=== PATIENT | female | born 1935 | race American Indian/Alaskan Native ===

== ENCOUNTER 2021-11-29 21:20 | Inpatient (IN) | payer MEDICARE ==
--- NOTE | 2021-11-29 22:33 | Emergency Department Report ---
- General Chief complaint: Weakness Stated complaint: NO DIALYSIS SINCE LAST SUNDAY Time Seen by Provider: 11/29/21 21:53 Source: EMS Mode of arrival: Stretcher Limitations: No Limitations - History of Present Illness Initial comments: Patient is 85 years old female with end-stage renal disease on hemodialysis. Patient brought to the emergency room via EMS from home for evaluation of generalized weakness. EMS stated that patient did not have dialysis since last Sunday which is approximately 9 days now. No reason for not going for dialysis. Patient is alert, oriented and stated that she go to [facility] [place] and her procurement technician named Dr. Truong. Patient denied any chest pain or shortness of breath. No nausea or vomiting. Severity scale (0 -10): 0 ED Review of Systems ROS: Stated complaint: NO DIALYSIS SINCE LAST SUNDAY Other details as noted in HPI Comment: All other systems reviewed and negative Constitutional: denies: chills, fever Respiratory: denies: cough, shortness of breath, SOB with exertion, SOB at rest Cardiovascular: denies: chest pain, palpitations, dyspnea on exertion Gastrointestinal: denies: abdominal pain, nausea, vomiting Musculoskeletal: denies: back pain Neurological: weakness. denies: headache, numbness, paresthesias ED Physical Exam - General Limitations: No Limitations General appearance: alert, in no apparent distress - Head Head exam: Present: atraumatic, normocephalic, normal inspection - Eye Eye exam: Present: normal appearance - ENT ENT exam: Present: normal exam, normal orophraynx, mucous membranes moist - Neck Neck exam: Present: normal inspection, full ROM. Absent: tenderness, meningismus - Respiratory Respiratory exam: Present: normal lung sounds bilaterally - Cardiovascular Cardiovascular Exam: Present: regular rate, normal rhythm, normal heart sounds - GI/Abdominal GI/Abdominal exam: Present: soft, normal bowel sounds. Absent: distended, tenderness, guarding, rebound, rigid, organomegaly, mass, bruit, pulsatile mass, hernia - Back Exam Back exam: Present: normal inspection, full ROM. Absent: CVA tenderness (R), CVA tenderness (L) - Neurological Exam Neurological exam: Present: alert, oriented X3, CN II-XII intact - Psychiatric Psychiatric exam: Present: normal mood - Skin Skin exam: Present: warm, intact, normal color ED Course Vital Signs 01/11/22 21:32 Temperature 98.4 F Pulse Rate 66 Respiratory 19 Rate Blood Pressure 118/68 [Left] O2 Sat by Pulse 99 Oximetry ED Medical Decision Making - Lab Data Result diagrams: 11/29/21 23:24 11/29/21 23:24 - EKG Data -: EKG Interpreted by Me EKG shows normal: sinus rhythm Rate: normal - EKG Data Interpretation: no acute changes - Radiology Data Radiology results: report reviewed - Medical Decision Making Patient is 85 years old female with end-stage renal disease on hemodialysis. Patient brought to the emergency room via EMS from home for evaluation of generalized weakness. EMS stated that patient did not have dialysis since last Sunday which is approximately 9 days now. No reason for not going for dialysis. Patient is alert, oriented and stated that she go to [facility] [place] and her procurement technician named Dr. Limon's. Patient denied any chest pain or shortness of breath. No nausea or vomiting. Patient found to have hyperkalemia with a potassium of 6.3. Patient received albuterol, dextrose, insulin and calcium chloride. I discussed the patient with Dr. Delfino Jaramillo, procurement technician on-call and he stated that he will put dialysis orders. I discussed the patient with Dr. Lee, he agreed to admit the patient to medical service for further management. Critical Care Time: Yes Critical care time in (mins) excluding proc time.: 35 Critical care attestation.: If time is entered above; I have spent that time in minutes in the direct care of this critically ill patient, excluding procedure time. ED Disposition Clinical Impression: Acute hyperkalemia, End-stage renal disease needing dialysis Disposition: 09 ADMITTED INPATIENT Is pt being admited?: Yes Condition: Stable
--- NOTE | 2021-11-29 22:53 | XRay Report ---
CHEST 1 VIEW INDICATION: Weakness. COMPARISON: 03/20/2010 FINDINGS: SUPPORT DEVICES: Right-sided cardiac device with leads projecting over the right atrium and the right ventricle. HEART: Within normal limits. LUNGS/PLEURA: Large hiatal hernia. Mild left basilar compressive atelectasis. Lungs are otherwise lenny ar. ADDITIONAL FINDINGS: None. IMPRESSION: 1. Large hiatal hernia and lung findings as above Signer Name: Humble Peterson MD Signed: 11/29/2021 10:49 PM Workstation Name: [id number]
[2021-11-29 23:48] LABS: Basophils % (Auto) 0.6 % (0.0-1.8); Eosinophils # (Auto) 0.1 K/mm3 (0.0-0.4); Eosinophils % (Auto) 1.3 % (0.0-4.3); Hematocrit 42.1 % (30.3-42.9); Hemoglobin 13.1 gm/dl (10.1-14.3); Lymphocytes # (Auto) 1.1 K/mm3 (1.2-5.4); Lymphocytes % (Auto) 14.5 % (13.4-35.0); Mean Corpuscular HGB Conc 31 % (30-34); Mean Corpuscular Volume 93 fl (79-97); Monocytes # (Auto) 0.8 K/mm3 (0.0-0.8); Monocytes % (Auto) 11.2 % (0.0-7.3); Platelet Count 132 K/mm3 (140-440); Red Blood Count 4.52 M/mm3 (3.65-5.03); Red Cell Distribution Width 15.3 % (13.2-15.2)
[2021-11-30 00:01] LABS: Calcium 8.6 mg/dL (8.4-10.2)
[2021-11-30] MEDS ORDERED: SODIUM CHLORIDE 0.9% 100 ML IV PRN ×2 (00:15→12:00)
--- NOTE | 2021-11-30 00:16 | Progress Note ---
Subjective Date of service: 11/30/21 Interval history: Patient agreeable and consents to dialysis. STAT HD ordered for hyperkalemia Objective - Vital Signs Vital signs: Vital Signs - 12hr 11/29/21 21:32 Temperature 98.4 F Pulse Rate 66 Respiratory 19 Rate Blood Pressure 118/68 [Left] O2 Sat by Pulse 99 Oximetry - Lab 11/29/21 23:24 11/29/21 23:24 Most recent lab results Calcium 8.6 mg/dL (8.4-10.2) 11/29/21 23:24 Medications & Allergies - Medications Allergies/Adverse Reactions: Allergies No Known Allergies Allergy (Verified 11/30/21 03:14) Active Medications: Generic Name Dose Route Start Last Admin Trade Name Freq PRN Reason Stop Dose Admin Albuterol 5 mg 11/30/21 00:10 Albuterol 2.5 Mg/3 Ml Nebu IH 11/30/21 00:11 ONCE ONE Dextrose 50 ml 11/30/21 00:10 Dextrose 50% In Water (25gm) 50 Ml Syringe IV 11/30/21 00:11 ONCE ONE Protocol Calcium Chloride 1,000 mg/ 110 mls @ 660 mls/hr 11/30/21 00:10 Sodium Chloride IV 11/30/21 00:19 ONCE ONE Insulin Human Regular 5 units 11/30/21 00:10 Insulin Regular, Human 100 Units/1 Ml IV 11/30/21 00:11 ONCE ONE Sodium Polystyrene Sulfonate 60 gm 11/30/21 00:14 Sodium Polystyrene 15 Gm/60 Ml Oral Liqd PO 11/30/21 00:15 ONCE ONE
[2021-11-30] MEDS ORDERED: ONDANSETRON 4 MG/2 ML INJ IV PRN (01:25)
[2021-11-30] MEDS ORDERED: HYDROmorphone 1 MG/1 ML INJ IV PRN (01:25)
[2021-11-30] MEDS ORDERED: ACETAMINOPHEN 325 MG TAB PO PRN (01:25)
[2021-11-30] MEDS ORDERED: MORPHINE 2 MG/1 ML INJ IV PRN (01:25)
--- NOTE | 2021-11-30 01:32 | History and Physical Report ---
History of Present Illness Date of examination: 11/30/21 Date of admission: 11/30/21 Chief complaint: Missed hemodialysis Weakness History of present illness: 85 years old female with end-stage renal disease on hemodialysis was brought to the emergency room because of generalized weakness. patient did not have dialysis since last Sunday which is approximately 9 days now. No reason for not going for dialysis. Patient is alert, oriented and stated that she go to [facility] [place] and her director of database marketing named Dr. Tamayos. Patient denied any chest pain or shortness of breath. No nausea or vomiting. In the emergency room patient found to have hyperkalemia with a potassium of 6.3. BUN of 69 and creatinine 15.1. patient received albuterol, dextrose, insulin and calcium chloride. Subsequently case discussed the patient with Dr. Delfino Jaramillo, director of database marketing on-call and director of database marketing will hemodialyzed the patient emergently. Past History Past Medical History: ESRD, renal failure Medications and Allergies Active Meds: Active Medications Albuterol (Albuterol 2.5 Mg/3 Ml Nebu) 5 mg IH ONCE ONE Stop: 11/30/21 00:11 Dextrose (Dextrose 50% In Water (25gm) 50 Ml Syringe) 50 ml IV ONCE ONE; Protocol Stop: 11/30/21 00:11 Calcium Chloride 1,000 mg/ (Sodium Chloride) 110 mls @ 660 mls/hr IV ONCE ONE Stop: 11/30/21 00:19 Sodium Chloride (Nacl 0.9%) 100 mls @ 999 mls/hr IV RALPH PRN PRN Reason: Hypotension Insulin Human Regular (Insulin Regular, Human 100 Units/1 Ml) 5 units IV ONCE ONE Stop: 11/30/21 00:11 Sodium Polystyrene Sulfonate (Sodium Polystyrene 15 Gm/60 Ml Oral Liqd) 60 gm PO ONCE ONE Stop: 11/30/21 00:15 Review of Systems All systems: negative Constitutional: fatigue, weakness, malaise, lethargy Exam - Constitutional Vitals: Temp Pulse Resp BP Pulse Ox 98.4 F 66 19 118/68 99 11/29/21 21:32 11/29/21 21:32 11/29/21 21:32 11/29/21 21:32 11/29/21 21:32 General appearance: Present: no acute distress, well-nourished - EENT Eyes: Present: PERRL ENT: hearing intact, clear oral mucosa - Neck Neck: Present: supple, normal ROM - Respiratory Respiratory effort: normal Respiratory: bilateral: diminished - Cardiovascular Heart Sounds: Present: S1 & S2. Absent: rub, click - Extremities Extremities: pulses symmetrical, No edema Peripheral Pulses: within normal limits - Abdominal General gastrointestinal: Present: soft, non-tender, non-distended, normal bowel sounds Female genitourinary: Present: normal - Integumentary Integumentary: Present: clear, warm, dry - Musculoskeletal Musculoskeletal: gait normal, strength equal bilaterally - Psychiatric Psychiatric: appropriate mood/affect, intact judgment & insight - Neurologic Neurologic: CNII-XII intact, moves all extremities Results - Labs CBC & Chem 7: 11/29/21 23:24 11/29/21 23:24 Labs: Laboratory Last Values WBC 7.5 K/mm3 (4.5-11.0) 11/29/21 23:24 RBC 4.52 M/mm3 (3.65-5.03) 11/29/21 23:24 Hgb 13.1 gm/dl (10.1-14.3) 11/29/21 23:24 Hct 42.1 % (30.3-42.9) 11/29/21 23:24 MCV 93 fl (79-97) 11/29/21 23:24 MCH 29 pg (28-32) 11/29/21 23:24 MCHC 31 % (30-34) 11/29/21 23:24 RDW 15.3 % (13.2-15.2) H 11/29/21 23:24 Plt Count 132 K/mm3 (140-440) L 11/29/21 23:24 Lymph % (Auto) 14.5 % (13.4-35.0) 11/29/21 23:24 Turner % (Auto) 11.2 % (0.0-7.3) H 11/29/21 23:24 Eos % (Auto) 1.3 % (0.0-4.3) 11/29/21 23:24 Baso % (Auto) 0.6 % (0.0-1.8) 11/29/21 23:24 Lymph # (Auto) 1.1 K/mm3 (1.2-5.4) L 11/29/21 23:24 Turner # (Auto) 0.8 K/mm3 (0.0-0.8) 11/29/21 23:24 Eos # (Auto) 0.1 K/mm3 (0.0-0.4) 11/29/21 23:24 Baso # (Auto) 0.0 K/mm3 (0.0-0.1) 11/29/21 23:24 Seg Neutrophils % 72.4 % (40.0-70.0) H 11/29/21 23:24 Seg Neutrophils # 5.5 K/mm3 (1.8-7.7) 11/29/21 23:24 Sodium 140 mmol/L (137-145) 11/29/21 23:24 Potassium 6.3 mmol/L (3.6-5.0) H* 11/29/21 23:24 Chloride 97.9 mmol/L (98-107) L 11/29/21 23:24 Carbon Dioxide 19 mmol/L (22-30) L 11/29/21 23:24 Anion Gap 29 mmol/L 11/29/21 23:24 BUN 69 mg/dL (7-17) H 11/29/21 23:24 Creatinine 15.1 mg/dL (0.6-1.2) H 11/29/21 23:24 Estimated GFR 3 ml/min 11/29/21 23:24 BUN/Creatinine Ratio 5 % 11/29/21 23:24 Glucose 95 mg/dL (65-100) 11/29/21 23:24 Calcium 8.6 mg/dL (8.4-10.2) 11/29/21 23:24 Assessment and Plan VTE prophylaxis?: Chemical Plan of care discussed with patient/family: Yes - Patient Problems (1) End-stage renal disease needing dialysis Current Visit: No Status: Acute Plan to address problem: Admit the patient to the medical telemetry. Patient already get calcium chloride 1 g IV x1 dose, insulin 5 units regular insulin, Kayexalate 60 g p.o. once. And D50. Case discussed with on-call nephrology Dr. Hunter Jaramillo who will do the emergent dialysis. Recheck BMP in the morning (2) Acute hyperkalemia Current Visit: No Status: Acute Plan to address problem: Patient already get calcium chloride 1 g IV x1 dose, insulin 5 units regular insulin, Kayexalate 60 g p.o. once. And D50. Case discussed with on-call nephrology Dr. Hunter Jaramillo who will do the emergent dialysis. Recheck BMP in the morning (3) DVT prophylaxis Current Visit: Yes Status: Acute Plan to address problem: Heparin 5000 units subcu every 8 hours for DVT prophylaxis. Pepcid 20 mg IV every 12 hours per GI prophylaxis. Patient is a full code
[2021-11-30] MEDS ORDERED: ALBUTEROL 2.5 MG/3 ML NEBU IH ONE (04:10)
[2021-11-30] MEDS ORDERED: CALCIUM CHLORIDE 1,000 MG in SODIUM CHLORIDE 0.9% 100 ML IV ONE (04:10)
[2021-11-30] MEDS ORDERED: INSULIN REGULAR, HUMAN 100 UNITS/1 ML IV ONE (04:10)
[2021-11-30] MEDS ORDERED: DEXTROSE 50% IN WATER (25GM) 50 ML SYRINGE IV ONE (04:10)
[2021-11-30] MEDS ORDERED: SODIUM POLYSTYRENE 15 GM/60 ML ORAL LIQD PO ONE (04:14)
[2021-11-30 05:45] LABS: Hepatitis C Virus Antibody Non-Reactive (NonReactive)
[2021-11-30 05:53] LABS: Hepatitis B Surface Antigen Nonreactive (Negative)
[2021-11-30] MEDS: HEPARIN 5,000 UNIT/1 ML VIAL SUB-Q SCH (10:07)
[2021-11-30] MEDS: FAMOTIDINE 20 MG TAB PO SCH (10:08)
--- NOTE | 2021-11-30 10:41 | Consultation ---
History of Present Illness - Reason for Consult Consult date: 11/30/21 end stage renal disease - History of Present Illness 85 year old F admitted to the [facility] with missed HD since more than a week. Pt has been found to have severe hyperkalemia on labs. Patient denied any chest pain or shortness of breath. No nausea or vomiting. She gets HD at [facility]. ROS: As in HPI otherwise 12 point review of systems -ve Past History Past Medical History: ESRD, renal failure Medications and Allergies Allergies Allergy/AdvReac Type Severity Reaction Status Date / Time No Known Allergies Allergy Verified 11/30/21 03:14 Active Meds: Active Medications Acetaminophen (Acetaminophen 325 Mg Tab) 650 mg PO Q4H PRN PRN Reason: Pain MILD(1-3)/Fever >100.5/JOSUE Famotidine (Famotidine 20 Mg Tab) 20 mg PO DAILY ON LICENSE OF [facility] Last Admin: 11/30/21 10:08 Dose: 20 mg Heparin Sodium (Porcine) (Heparin 5,000 Unit/1 Ml Vial) 5,000 unit SUB-Q Q12HR ON LICENSE OF [facility] Last Admin: 11/30/21 10:07 Dose: 5,000 unit Hydromorphone HCl (Hydromorphone 1 Mg/1 Ml Inj) 0.5 mg IV Q3H PRN PRN Reason: Pain , Severe (7-10) Sodium Chloride (Nacl 0.9%) 100 mls @ 999 mls/hr IV RALPH PRN PRN Reason: Hypotension Morphine Sulfate (Morphine 2 Mg/1 Ml Inj) 2 mg IV Q4H PRN PRN Reason: Pain, Moderate (4-6) Ondansetron HCl (Ondansetron 4 Mg/2 Ml Inj) 4 mg IV Q8H PRN PRN Reason: Nausea And Vomiting Sodium Chloride (Sodium Chloride 0.9% 10 Ml Flush Syringe) 10 ml IV BID ON LICENSE OF [facility] Sodium Chloride (Sodium Chloride 0.9% 10 Ml Flush Syringe) 10 ml IV PRN PRN PRN Reason: LINE FLUSH Exam - Vital Signs Vital signs: Vital Signs Temp Pulse Resp BP Pulse Ox 98.4 F 66 19 118/68 99 11/29/21 21:32 11/29/21 21:32 11/29/21 21:32 11/29/21 21:32 11/29/21 21:32 - Physical Exam Narrative exam: General appearance: Present: no acute distress, well-nourished - EENT Eyes: Present: PERRL ENT: hearing intact, clear oral mucosa - Neck Neck: Present: supple, normal ROM - Respiratory Respiratory effort: normal Respiratory: bilateral: diminished - Cardiovascular Heart Sounds: Present: S1 & S2. Absent: rub, click - Extremities Extremities: pulses symmetrical, No edema Peripheral Pulses: within normal limits - Abdominal General gastrointestinal: Present: soft, non-tender, non-distended, normal bowel sounds Female genitourinary: Present: normal - Integumentary Integumentary: Present: clear, warm, dry - Musculoskeletal Musculoskeletal: gait normal, strength equal bilaterally - Psychiatric Psychiatric: appropriate mood/affect, intact judgment & insight - Neurologic Neurologic: CNII-XII intact, moves all extremities Results - Lab Results 11/29/21 23:24 11/29/21 23:24 Most recent lab results Calcium 8.6 mg/dL (8.4-10.2) 11/29/21 23:24 Assessment and Plan ESRD on HD: Hyperkalemia: Metabolic acidosis: Thrombocytopenia: -S/p STAT HD last night. Pt agreeable and consented to dialysis. -Low K diet -Recheck BMP -Eval for HD need daily -Strict I/Os
[2021-11-30 11:47] LABS: Calcium 9.1 mg/dL (8.4-10.2)
--- NOTE | 2021-11-30 18:12 | Progress Note ---
Assessment and Plan Assessment and plan: 85 years old female with end-stage renal disease on hemodialysis was brought to the emergency room because of generalized weakness. She has been feeling ill with mild cough nausea, anorexia and some diarrhea since 7 to 10 days. Symptoms improving but still weak and not able to eat much. She was not able to go for dialysis since is feeling ill and weak. She is vaccinated including booster dose for COVID-19. Lives with her daughter and her son-in-law. patient did not have dialysis since last Sunday which is approximately 9 days now. Patient is alert, oriented and stated that she go to [facility] [place] and her oil recovery operator named Dr. Limon's. Patient denied any chest pain or shortness of breath. No nausea or vomiting. In the emergency room patient found to have hyperkalemia with a potassium of 6.3. BUN of 69 and creatinine 15.1. patient received albuterol, dextrose, insulin and calcium chloride. Subsequently case discussed the patient with Dr. Delfino Jaramillo, oil recovery operator on-call and oil recovery operator will hemodialyzed the patient emergently. (1) End-stage renal disease needing dialysis Current Visit: No Status: Acute Plan to address problem: Patient was unable to go for hemodialysis since sick with GI symptoms and some cough. Noted to be hyperkalemic Patient already get calcium chloride 1 g IV x1 dose, insulin 5 units regular insulin, Kayexalate 60 g p.o. once. And D50. Case discussed with on-call nephrology Dr. Hunter Jaramillo, underwent emergent hemodialysis and potassium normalized. Patient is currently euvolemic. (2) Acute hyperkalemia Current Visit: No Status: Acute Plan to address problem: Patient already get calcium chloride 1 g IV x1 dose, insulin 5 units regular insulin, Kayexalate 60 g p.o. once. And D50. Case discussed with on-call nephrology Dr. Hunter Jaramillo, patient underwent hemodialysis emergently, potassium normalized. (3) acute illness with nausea, anorexia, mild diarrhea and cough generalized weakness since poorly eating x10 days. She has been feeling ill with mild cough nausea, anorexia and some diarrhea since 7 to 10 days. Symptoms improving but still weak and not able to eat much. She was not able to go for dialysis since is feeling ill and weak. She is vaccinated including booster dose against COVID-19. Has generalized weakness. Resume renal diet as tolerated. Supportive measures. DVT prophylaxis Current Visit: Yes Status: Acute Plan to address problem: Heparin 5000 units subcu every 8 hours for DVT prophylaxis. Pepcid 20 mg IV every 12 hours per GI prophylaxis. Patient is a full code History Interval history: Patient is awake but looks sluggish. Oriented. Answers questions very well. She has been feeling ill with mild cough nausea, anorexia and some diarrhea since 7 to 10 days. Symptoms improving but still weak and not able to eat much. She was not able to go for dialysis since is feeling ill and weak. She is vaccinated including booster dose for COVID-19. Lives with her daughter and her son-in-law. Underwent emergent dialysis for hyperkalemia. Patient currently denies dyspnea, chills or chest pains. Hospitalist Physical - Constitutional Vitals: Temp Pulse Resp BP Pulse Ox 98.6 F 73 18 145/56 97 11/30/21 16:40 11/30/21 16:40 11/30/21 16:40 11/30/21 16:40 11/30/21 16:40 General appearance: Present: no acute distress, other - EENT Eyes: Present: PERRL (Sluggish.), EOM intact ENT: other (Oral mucosa dry) - Respiratory Respiratory effort: normal Respiratory: bilateral: CTA - Cardiovascular Rhythm: regular - Extremities Extremities: No edema - Abdominal General gastrointestinal: soft, non-tender, normal bowel sounds - Integumentary Integumentary: Absent: rash - Neurologic Neurologic: no focal deficits, moves all extremities Results - Labs CBC & Chem 7: 11/29/21 23:24 11/30/21 10:47 Labs: Laboratory Last Values WBC 7.5 K/mm3 (4.5-11.0) 11/29/21 23:24 RBC 4.52 M/mm3 (3.65-5.03) 11/29/21 23:24 Hgb 13.1 gm/dl (10.1-14.3) 11/29/21 23:24 Hct 42.1 % (30.3-42.9) 11/29/21 23:24 MCV 93 fl (79-97) 11/29/21 23:24 MCH 29 pg (28-32) 11/29/21 23:24 MCHC 31 % (30-34) 11/29/21 23:24 RDW 15.3 % (13.2-15.2) H 11/29/21 23:24 Plt Count 132 K/mm3 (140-440) L 11/29/21 23:24 Lymph % (Auto) 14.5 % (13.4-35.0) 11/29/21 23:24 Deuel % (Auto) 11.2 % (0.0-7.3) H 11/29/21 23:24 Eos % (Auto) 1.3 % (0.0-4.3) 11/29/21 23:24 Baso % (Auto) 0.6 % (0.0-1.8) 11/29/21 23:24 Lymph # (Auto) 1.1 K/mm3 (1.2-5.4) L 11/29/21 23:24 Deuel # (Auto) 0.8 K/mm3 (0.0-0.8) 11/29/21 23:24 Eos # (Auto) 0.1 K/mm3 (0.0-0.4) 11/29/21 23:24 Baso # (Auto) 0.0 K/mm3 (0.0-0.1) 11/29/21 23:24 Seg Neutrophils % 72.4 % (40.0-70.0) H 11/29/21 23:24 Seg Neutrophils # 5.5 K/mm3 (1.8-7.7) 11/29/21 23:24 Sodium 141 mmol/L (137-145) 11/30/21 10:47 Potassium 4.9 mmol/L (3.6-5.0) D 11/30/21 10:47 Chloride 100.8 mmol/L (98-107) 11/30/21 10:47 Carbon Dioxide 19 mmol/L (22-30) L 11/30/21 10:47 Anion Gap 26 mmol/L 11/30/21 10:47 BUN 32 mg/dL (7-17) H 11/30/21 10:47 Creatinine 9.4 mg/dL (0.6-1.2) H 11/30/21 10:47 Estimated GFR 5 ml/min 11/30/21 10:47 BUN/Creatinine Ratio 3 % 11/30/21 10:47 Glucose 126 mg/dL (65-100) H 11/30/21 10:47 POC Glucose 133 mg/dL (70-105) H 11/30/21 17:26 Calcium 9.1 mg/dL (8.4-10.2) 11/30/21 10:47 Hepatitis A IgM Ab Non-reactive (NonReactive) 11/30/21 04:15 Hep Bs Antigen Nonreactive (Negative) 11/30/21 04:15 Hep B Core IgM Ab Non-reactive (NonReactive) 11/30/21 04:15 Hepatitis C Antibody Non-reactive (NonReactive) 11/30/21 04:15 Active Medications - Current Medications Current Medications: Generic Name Dose Route Start Last Admin Trade Name Freq PRN Reason Stop Dose Admin Acetaminophen 650 mg 11/30/21 01:25 Acetaminophen 325 Mg Tab PO Q4H PRN Pain MILD(1-3)/Fever >100.5/JOSUE Famotidine 20 mg 11/30/21 10:00 11/30/21 10:08 Famotidine 20 Mg Tab PO 20 mg DAILY ROBERT Administration Heparin Sodium (Porcine) 5,000 unit 11/30/21 10:00 11/30/21 10:07 Heparin 5,000 Unit/1 Ml Vial SUB-Q 5,000 unit Q12HR ROBERT Administration Hydromorphone HCl 0.5 mg 11/30/21 01:25 Hydromorphone 1 Mg/1 Ml Inj IV Q3H PRN Pain , Severe (7-10) Sodium Chloride 100 mls @ 999 mls/hr 11/30/21 12:00 Nacl 0.9% IV RALPH PRN Hypotension Morphine Sulfate 2 mg 11/30/21 01:25 Morphine 2 Mg/1 Ml Inj IV Q4H PRN Pain, Moderate (4-6) Ondansetron HCl 4 mg 11/30/21 01:25 Ondansetron 4 Mg/2 Ml Inj IV Q8H PRN Nausea And Vomiting Sodium Chloride 10 ml 11/30/21 10:00 Sodium Chloride 0.9% 10 Ml Flush Syringe IV BID ROBERT Sodium Chloride 10 ml 11/30/21 01:25 Sodium Chloride 0.9% 10 Ml Flush Syringe IV PRN PRN LINE FLUSH
[2021-12-01] MEDS: HEPARIN 5,000 UNIT/1 ML VIAL SUB-Q SCH ×3 (01:00→22:16)
--- NOTE | 2021-12-01 09:25 | Progress Note ---
Assessment and Plan ESRD on HD: Hyperkalemia: Metabolic acidosis: Thrombocytopenia: -HD again today for clearance and volume removal -will assess dialysis daily -Low K diet -Recheck BMP -Eval for HD need daily -Strict I/Os Subjective Date of service: 12/01/21 Principal diagnosis: ESRD Interval history: Tolerated HD yesterday Objective - Vital Signs Vital signs: Vital Signs - 12hr 12/01/21 06:41 Temperature 98.2 F Pulse Rate 63 Respiratory 22 Rate Blood Pressure 101/23 [Left] O2 Sat by Pulse 96 Oximetry - Lab 11/29/21 23:24 11/30/21 10:47 Most recent lab results Calcium 9.1 mg/dL (8.4-10.2) 11/30/21 10:47 Medications & Allergies - Medications Allergies/Adverse Reactions: Allergies No Known Allergies Allergy (Verified 11/30/21 03:14) Active Medications: Generic Name Dose Route Start Last Admin Trade Name Freq PRN Reason Stop Dose Admin Acetaminophen 650 mg 11/30/21 01:25 Acetaminophen 325 Mg Tab PO Q4H PRN Pain MILD(1-3)/Fever >100.5/JOSUE Famotidine 20 mg 11/30/21 10:00 11/30/21 10:08 Famotidine 20 Mg Tab PO 20 mg DAILY ROBERT Administration Heparin Sodium (Porcine) 5,000 unit 11/30/21 10:00 12/01/21 01:00 Heparin 5,000 Unit/1 Ml Vial SUB-Q 5,000 unit Q12HR ROBERT Administration Sodium Chloride 100 mls @ 999 mls/hr 11/30/21 12:00 Nacl 0.9% IV RALPH PRN Hypotension Morphine Sulfate 2 mg 11/30/21 01:25 Morphine 2 Mg/1 Ml Inj IV Q4H PRN Pain, Moderate (4-6) Ondansetron HCl 4 mg 11/30/21 01:25 Ondansetron 4 Mg/2 Ml Inj IV Q8H PRN Nausea And Vomiting Sodium Chloride 10 ml 11/30/21 10:00 12/01/21 03:53 Sodium Chloride 0.9% 10 Ml Flush Syringe IV Not Given BID ROBERT Sodium Chloride 10 ml 11/30/21 01:25 Sodium Chloride 0.9% 10 Ml Flush Syringe IV PRN PRN LINE FLUSH
[2021-12-01] MEDS ORDERED: SODIUM CHLORIDE 0.9% 500 ML 500 ML ONE (09:53)
[2021-12-01] MEDS ORDERED: SODIUM CHLORIDE 0.9% 500 ML 500 ML IV ONE (10:07)
[2021-12-01] MEDS ORDERED: ALBUMIN HUMAN 25% (25 GM/100 ML) INJ IV STA (10:14)
[2021-12-01] MEDS: FAMOTIDINE 20 MG TAB PO SCH (17:10)
--- NOTE | 2021-12-01 21:20 | Progress Note ---
Assessment and Plan Assessment and plan: 85 years old female with end-stage renal disease on hemodialysis was brought to the emergency room because of generalized weakness. She has been feeling ill with mild cough nausea, anorexia and some diarrhea since 7 to 10 days. Symptoms improving but still weak and not able to eat much. She was not able to go for dialysis since is feeling ill and weak. She is vaccinated including booster dose for COVID-19. Lives with her daughter and her son-in-law. patient did not have dialysis since last Sunday which is approximately 9 days now. Patient is alert, oriented and stated that she go to [facility] [place] and her pin drafting machine operator named Dr. Limon's. Patient denied any chest pain or shortness of breath. No nausea or vomiting. In the emergency room patient found to have hyperkalemia with a potassium of 6.3. BUN of 69 and creatinine 15.1. patient received albuterol, dextrose, insulin and calcium chloride. Subsequently case discussed the patient with Dr. Delfino Jaramillo, pin drafting machine operator on-call and pin drafting machine operator will hemodialyzed the patient emergently. (1) End-stage renal disease needing dialysis Current Visit: No Status: Acute Plan to address problem: Patient was unable to go for hemodialysis since sick with GI symptoms and some cough. Noted to be hyperkalemic Patient already get calcium chloride 1 g IV x1 dose, insulin 5 units regular insulin, Kayexalate 60 g p.o. once. And D50. Case discussed with on-call nephrology Dr. Hunter Jaramillo, underwent emergent hemodialysis and potassium normalized. Patient is currently euvolemic. Receiving dialysis as per schedule. (2) Acute hyperkalemia Current Visit: No Status: Acute Plan to address problem: Patient already get calcium chloride 1 g IV x1 dose, insulin 5 units regular insulin, Kayexalate 60 g p.o. once. And D50. Case discussed with on-call nephrology Dr. Hunter Jaramillo, patient underwent hemodialysis emergently, potassium normalized since. Likely etiology of hyperkalemia is noncompliance with dialysis. (3) COVID-19 acute infection: Acute illness with nausea, anorexia, mild diarrhea and cough generalized weakness since poorly eating x10 days. She has been feeling ill with mild cough nausea, anorexia and some diarrhea since 7 to 10 days. Symptoms improving but still weak and not able to eat much. She was not able to go for dialysis since is feeling ill and weak. She is vaccinated including booster dose against COVID-19. PCR test for COVID-19 positive 12/01. Resumed renal diet as tolerated. Remains very poor and thus ligation with poor p.o. intake. Ordered PT. Supportive measures. No indication for steroids or remdesivir. (4) hypotension Likely due to poor p.o. intake. She is not on any hypertensives. Improved after renal normal saline bolus, 500 mL x 1. DVT prophylaxis Current Visit: Yes Status: Acute Plan to address problem: Heparin 5000 units subcu every 8 hours for DVT prophylaxis. Pepcid for GI prophylaxis. Patient is a full code Discussed with the patient, nursing staff and dialysis nurse. History Interval history: Patient remains Lasix with poor p.o. intake, and continues complaints of generalized weakness. BP was low this morning 93/33, heart rate 66 and patient was given 500 mL of normal saline bolus before dialysis. BP improved since. Patient remains sluggish. Patient finally agreed for COVID test which returned positive today. Nausea and diarrhea improved. No significant cough. She remains on room air. She is currently not taking any meds. Hospitalist Physical - Constitutional Vitals: Temp Pulse Resp BP Pulse Ox 98.0 F 85 18 104/38 100 12/01/21 16:10 12/01/21 19:09 12/01/21 19:09 12/01/21 19:09 12/01/21 19:09 General appearance: Present: no acute distress, other (Looks like this last week. Oriented.) - EENT Eyes: Present: PERRL, EOM intact ENT: other (Oral mucosa dry) - Neck Neck: Present: supple - Respiratory Respiratory effort: normal Respiratory: bilateral: CTA - Cardiovascular Rhythm: regular - Extremities Extremities: No edema - Abdominal General gastrointestinal: soft, non-tender, normal bowel sounds - Integumentary Integumentary: Absent: rash - Psychiatric Psychiatric: appropriate mood/affect - Neurologic Neurologic: no focal deficits, moves all extremities Results - Labs CBC & Chem 7: 11/29/21 23:24 11/30/21 10:47 Labs: Laboratory Last Values WBC 7.5 K/mm3 (4.5-11.0) 11/29/21 23:24 RBC 4.52 M/mm3 (3.65-5.03) 11/29/21 23:24 Hgb 13.1 gm/dl (10.1-14.3) 11/29/21 23:24 Hct 42.1 % (30.3-42.9) 11/29/21 23:24 MCV 93 fl (79-97) 11/29/21 23:24 MCH 29 pg (28-32) 11/29/21 23:24 MCHC 31 % (30-34) 11/29/21 23:24 RDW 15.3 % (13.2-15.2) H 11/29/21 23:24 Plt Count 132 K/mm3 (140-440) L 11/29/21 23:24 Lymph % (Auto) 14.5 % (13.4-35.0) 11/29/21 23:24 [place] % (Auto) 11.2 % (0.0-7.3) H 11/29/21 23:24 Eos % (Auto) 1.3 % (0.0-4.3) 11/29/21 23: Baso % (Auto) 0.6 % (0.0-1.8) 11/29/21 23:24 Lymph # (Auto) 1.1 K/mm3 (1.2-5.4) L 11/29/21 23:24 [place] # (Auto) 0.8 K/mm3 (0.0-0.8) 11/29/21 23: Eos # (Auto) 0.1 K/mm3 (0.0-0.4) 11/29/21 23: Baso # (Auto) 0.0 K/mm3 (0.0-0.1) 11/29/21 23:24 Seg Neutrophils % 72.4 % (40.0-70.0) H 11/29/21 23:24 Seg Neutrophils # 5.5 K/mm3 (1.8-7.7) 11/29/21 23:24 Sodium 141 mmol/L (137-145) 11/30/21 10:47 Potassium 4.9 mmol/L (3.6-5.0) D 11/30/21 10:47 Chloride 100.8 mmol/L (98-107) 11/30/21 10:47 Carbon Dioxide 19 mmol/L (22-30) L 11/30/21 10:47 Anion Gap 26 mmol/L 11/30/21 10:47 BUN 32 mg/dL (7-17) H 11/30/21 10:47 Creatinine 9.4 mg/dL (0.6-1.2) H 11/30/21 10:47 Estimated GFR 5 ml/min 11/30/21 10:47 BUN/Creatinine Ratio 3 % 11/30/21 10:47 Glucose 126 mg/dL (65-100) H 11/30/21 10:47 POC Glucose 133 mg/dL (70-105) H 11/30/21 17:26 Calcium 9.1 mg/dL (8.4-10.2) 11/30/21 10:47 Coronavirus (PCR) Positive (Negative) A 12/01/21 Unknown Hepatitis A IgM Ab Non-reactive (NonReactive) 11/30/21 04:15 Hep Bs Antigen Nonreactive (Negative) 11/30/21 04:15 Hep B Core IgM Ab Non-reactive (NonReactive) 11/30/21 04:15 Hepatitis C Antibody Non-reactive (NonReactive) 11/30/21 04:15 Active Medications - Current Medications Current Medications: Generic Name Dose Route Start Last Admin Trade Name Freq PRN Reason Stop Dose Admin Acetaminophen 650 mg 11/30/21 01:25 Acetaminophen 325 Mg Tab PO Q4H PRN Pain MILD(1-3)/Fever >100.5/JOSUE Famotidine 20 mg 11/30/21 10:00 12/01/21 17:10 Famotidine 20 Mg Tab PO 20 mg DAILY ROBERT Administration Heparin Sodium (Porcine) 5,000 unit 11/30/21 10:00 12/01/21 17:08 Heparin 5,000 Unit/1 Ml Vial SUB-Q 5,000 unit Q12HR ROBERT Administration Sodium Chloride 100 mls @ 999 mls/hr 11/30/21 12:00 Nacl 0.9% IV RALPH PRN Hypotension Morphine Sulfate 2 mg 11/30/21 01:25 Morphine 2 Mg/1 Ml Inj IV Q4H PRN Pain, Moderate (4-6) Ondansetron HCl 4 mg 11/30/21 01:25 Ondansetron 4 Mg/2 Ml Inj IV Q8H PRN Nausea And Vomiting Sodium Chloride 10 ml 11/30/21 10:00 12/01/21 17:10 Sodium Chloride 0.9% 10 Ml Flush Syringe IV 10 ml BID ROBERT Administration Sodium Chloride 10 ml 11/30/21 01:25 Sodium Chloride 0.9% 10 Ml Flush Syringe IV PRN PRN LINE FLUSH
--- NOTE | 2021-12-02 09:08 | Progress Note ---
Assessment and Plan ESRD on HD: Hyperkalemia: Metabolic acidosis: Thrombocytopenia: -no indication for HD today -will assess dialysis daily -Low K diet -Recheck BMP -Eval for HD need daily -Strict I/Os Subjective Date of service: 12/02/21 Principal diagnosis: ESRD Interval history: Tolerated HD yesterday, refused labs this AM Objective - Vital Signs Vital signs: Vital Signs - 12hr 12/01/21 12/02/21 12/02/21 21:34 02:05 02:31 Temperature 98.5 F 98.3 F 98.6 F Pulse Rate 66 63 68 Respiratory 14 16 16 Rate Blood Pressure 97/33 Blood Pressure 155/60 97/33 [Left] O2 Sat by Pulse 100 97 97 Oximetry 12/02/21 12/02/21 02:44 05:47 Temperature 98.5 F Pulse Rate 66 Respiratory 20 Rate Blood Pressure 153/55 Blood Pressure [Left] O2 Sat by Pulse 96 98 Oximetry - Lab 11/29/21 23:24 11/30/21 10:47 Most recent lab results Calcium 9.1 mg/dL (8.4-10.2) 11/30/21 10:47 Medications & Allergies - Medications Allergies/Adverse Reactions: Allergies No Known Allergies Allergy (Verified 11/30/21 03:14) Active Medications: Generic Name Dose Route Start Last Admin Trade Name Gustaboq PRN Reason Stop Dose Admin Acetaminophen 650 mg 11/30/21 01:25 Acetaminophen 325 Mg Tab PO Q4H PRN Pain MILD(1-3)/Fever >100.5/JOSUE Famotidine 20 mg 11/30/21 10:00 12/01/21 17:10 Famotidine 20 Mg Tab PO 20 mg DAILY ROBERT Administration Heparin Sodium (Porcine) 5,000 unit 11/30/21 10:00 12/01/21 22:16 Heparin 5,000 Unit/1 Ml Vial SUB-Q 5,000 unit Q12HR ROBERT Administration Sodium Chloride 100 mls @ 999 mls/hr 11/30/21 12:00 Nacl 0.9% IV RALPH PRN Hypotension Morphine Sulfate 2 mg 11/30/21 01:25 12/02/21 04:37 Morphine 2 Mg/1 Ml Inj IV 2 mg Q4H PRN Administration Pain, Moderate (4-6) Ondansetron HCl 4 mg 11/30/21 01:25 Ondansetron 4 Mg/2 Ml Inj IV Q8H PRN Nausea And Vomiting Sodium Chloride 10 ml 11/30/21 10:00 12/01/21 22:11 Sodium Chloride 0.9% 10 Ml Flush Syringe IV 10 ml BID ROBERT Administration Sodium Chloride 10 ml 11/30/21 01:25 Sodium Chloride 0.9% 10 Ml Flush Syringe IV PRN PRN LINE FLUSH
[2021-12-02] MEDS: FAMOTIDINE 20 MG TAB PO SCH (09:47)
[2021-12-02] MEDS: HEPARIN 5,000 UNIT/1 ML VIAL SUB-Q SCH ×2 (09:47→22:02)
--- NOTE | 2021-12-02 19:17 | Progress Note ---
Assessment and Plan Assessment and plan: 85 years old female with end-stage renal disease on hemodialysis was brought to the emergency room because of generalized weakness. She has been feeling ill with mild cough nausea, anorexia and some diarrhea since 7 to 10 days. Symptoms improving but still weak and not able to eat much. She was not able to go for dialysis since is feeling ill and weak. She is vaccinated including booster dose for COVID-19. Lives with her daughter and her son-in-law. patient did not have dialysis since last Sunday which is approximately 9 days now. Patient is alert, oriented and stated that she go to [facility] [place] and her social work nurse named Dr. Limon's. Patient denied any chest pain or shortness of breath. No nausea or vomiting. In the emergency room patient found to have hyperkalemia with a potassium of 6.3. BUN of 69 and creatinine 15.1. patient received albuterol, dextrose, insulin and calcium chloride. Subsequently case discussed the patient with Dr. Delfino Jaramillo, social work nurse on-call and social work nurse will hemodialyzed the patient emergently. (1) End-stage renal disease needing dialysis Current Visit: No Status: Acute Plan to address problem: Patient was unable to go for hemodialysis since sick with GI symptoms and some cough. Noted to be hyperkalemic Patient already get calcium chloride 1 g IV x1 dose, insulin 5 units regular insulin, Kayexalate 60 g p.o. once. And D50. C ase discussed with on-call nephrology Dr. Hunter Jaramillo, underwent emergent hemodialysis and potassium normalized. Patient is currently euvolemic. Receiving dialysis as per schedule. (2) Acute hyperkalemia Current Visit: No Status: Acute Plan to address problem: Patient already get calcium chloride 1 g IV x1 dose, insulin 5 units regular insulin, Kayexalate 60 g p.o. once. And D50. Case discussed with on-call nephrology Dr. Hunter Jaramillo, patient underwent hemodialysis emergently, potassium normalized since. Likely etiology of hyperkalemia is noncompliance with dialysis. (3) COVID-19 acute infection: Acute illness with nausea, anorexia, mild diarrhea and cough generalized weakn ess since poorly eating x10 days. She has been feeling ill with mild cough nausea, anorexia and some diarrhea since 7 to 10 days. Symptoms improving but still weak and not able to eat much. She was not able to go for dialysis since is feeling ill and weak. She is vaccinated including booster dose against COVID-19. PCR test for COVID-19 positive 12/01. Resumed renal diet as tolerated. No nausea or diarrhea. Appetite is improved. Started eating. Ordered PT. Supportive measures. No indication for steroids or remdesivir. (4) hypotension Likely due to poor p.o. intake. She is not on any hypertensives. Improved after renal normal saline bolus, 500 mL x 1 on 12/01. DVT prophylaxis Current Visit: Yes Status: Acute Plan to address problem: Heparin 5000 units subcu every 8 hours for DVT prophylaxis. Pepcid for GI prophylaxis. Patient is a full code Disposition: Alexia and generalized weakness.improving. Consulted PT to get out of bed. Possible discharge tomorrow. Discussed with the patient. History Interval history: Patient reports improvement of sometimes weakness, nausea and anorexia. However, she did not ambulate much. Denies fever, chills, cough or dyspnea. Remains on room air. Hospitalist Physical - Constitutional Vitals: Temp Pulse Resp BP Pulse Ox 98.5 F 66 20 153/55 95 12/02/21 05:47 12/02/21 05:47 12/02/21 05:47 12/02/21 05:47 12/02/21 11:41 General appearance: Present: no acute distress, other (Looks to be strong, awake, oriented.) - EENT Eyes: Present: PERRL, EOM intact ENT: clear oral mucosa - Neck Neck: Present: supple - Respiratory Respiratory effort: normal Respiratory: bilateral: CTA - Cardiovascular Rhythm: regular - Extremities Extremities: No edema - Abdominal General gastrointestinal: soft, non-tender - Integumentary Integumentary: Absent: rash - Psychiatric Psychiatric: appropriate mood/affect - Neurologic Neurologic: no focal deficits, moves all extremities Results - Labs CBC & Chem 7: 12/02/21 22:55 12/02/21 22:55 Labs: Laboratory Last Values WBC 7.5 K/mm3 (4.5-11.0) 11/29/21 23:24 RBC 4.52 M/mm3 (3.65-5.03) 11/29/21 23:24 Hgb 13.1 gm/dl (10.1-14.3) 11/29/21 23:24 Hct 42.1 % (30.3-42.9) 11/29/21 23:24 MCV 93 fl (79-97) 11/29/21 23:24 MCH 29 pg (28-32) 11/29/21 23:24 MCHC 31 % (30-34) 11/29/21 23:24 RDW 15.3 % (13.2-15.2) H 11/29/21 23:24 Plt Count 132 K/mm3 (140-440) L 11/29/21 23:24 Lymph % (Auto) 14.5 % (13.4-35.0) 11/29/21 23:24 [place] % (Auto) 11.2 % (0.0-7.3) H 11/29/21 23:24 Eos % (Auto) 1.3 % (0.0-4.3) 11/29/21 23:24 Baso % (Auto) 0.6 % (0.0-1.8) 11/29/21 23:24 Lymph # (Auto) 1.1 K/mm3 (1.2-5.4) L 11/29/21 23:24 [place] # (Auto) 0.8 K/mm3 (0.0-0.8) 11/29/21 23:24 Eos # (Auto) 0.1 K/mm3 (0.0-0.4) 11/29/21 23:24 Baso # (Auto) 0.0 K/mm3 (0.0-0.1) 11/29/21 23:24 Seg Neutrophils % 72.4 % (40.0-70.0) H 11/29/21 23:24 Seg Neutrophils # 5.5 K/mm3 (1.8-7.7) 11/29/21 23:24 Sodium 141 mmol/L (137-145) 11/30/21 10:47 Potassium 4.9 mmol/L (3.6-5.0) D 11/30/21 10:47 Chloride 100.8 mmol/L (98-107) 11/30/21 10:47 Carbon Dioxide 19 mmol/L (22-30) L 11/30/21 10:47 Anion Gap 26 mmol/L 11/30/21 10:47 BUN 32 mg/dL (7-17) H 11/30/21 10:47 Creatinine 9.4 mg/dL (0.6-1.2) H 11/30/21 10:47 Estimated GFR 5 ml/min 11/30/21 10:47 BUN/Creatinine Ratio 3 % 11/30/21 10:47 Glucose 126 mg/dL (65-100) H 11/30/21 10:47 POC Glucose 133 mg/dL (70-105) H 11/30/21 17:26 Calcium 9.1 mg/dL (8.4-10.2) 11/30/21 10:47 Coronavirus (PCR) Positive (Negative) A 12/01/21 Unknown Hepatitis A IgM Ab Non-reactive (NonReactive) 11/30/21 04:15 Hep Bs Antigen Nonreactive (Negative) 11/30/21 04:15 Hep B Core IgM Ab Non-reactive (NonReactive) 11/30/21 04:15 Hepatitis C Antibody Non-reactive (NonReactive) 11/30/21 04:15 Vasquez/IV: Voiding Method Bedpan Active Medications - Current Medications Current Medications: Generic Name Dose Route Start Last Admin Trade Name Freq PRN Reason Stop Dose Admin Acetaminophen 650 mg 11/30/21 01:25 12/02/21 16:49 Acetaminophen 325 Mg Tab PO 650 mg Q4H PRN Administration Pain MILD(1-3)/Fever >100.5/JOSUE Famotidine 20 mg 11/30/21 10:00 12/02/21 09:47 Famotidine 20 Mg Tab PO 20 mg DAILY ROBERT Administration Heparin Sodium (Porcine) 5,000 unit 11/30/21 10:00 12/02/21 09:47 Heparin 5,000 Unit/1 Ml Vial SUB-Q 5,000 unit Q12HR ROBERT Administration Sodium Chloride 100 mls @ 999 mls/hr 11/30/21 12:00 Nacl 0.9% IV RALPH PRN Hypotension Ondansetron HCl 4 mg 11/30/21 01:25 Ondansetron 4 Mg/2 Ml Inj IV Q8H PRN Nausea And Vomiting Sodium Chloride 10 ml 11/30/21 10:00 12/02/21 09:48 Sodium Chloride 0.9% 10 Ml Flush Syringe IV 10 ml BID ROBERT Administration Sodium Chloride 10 ml 11/30/21 01:25 Sodium Chloride 0.9% 10 Ml Flush Syringe IV PRN PRN LINE FLUSH Nutrition/Malnutrition Assess - Dietary Evaluation Nutrition/Malnutrition Findings: Nutrition Notes Start: 12/02/21 10:51 Freq: Status: Active Protocol: Document 12/02/21 10:51 [email or web address] (Rec: 12/02/21 10:57 [email or web address] [id number]) Nutrition Notes Need for Assessment generated from: tax services professional Initial or Follow up Assessment Current Diagnosis CKD (stage V CKD) Other Pertinent Diagnosis Weakness, Missed HD, COVID-19 (+) Current Diet Renal Labs/Tests No current available; K 6.3 upon admission Pertinent Medications Reviewed Height 5 ft 6 in Weight 54.6 kg [place] Body Weight (kg) 59.09 BMI 19.4 Weight Status Underweight Subjective/Other Information Pt screened for skin risk ( Hermann score unavailable), chewing difficulty and hx of receiving NTR support. Pt admitted sec to missed HD. Burn Absent Trauma Absent Minimum of two criteria No #1 Nutrition Diagnosis Predicted suboptimal energy intake Etiology advanced age, weakness, COVID- 19 As Evidenced by Signs and Symptoms pt refused meals when first admitted, pt underweight for age Is patient on ventilator? No Is Patient Ambulatory and/or Out of Bed No REE-([facility]-confined to bed) 1228.608 Kcal/Kg value to use for calculation 28 Approximate Energy Requirements Using 1529 kcal/Kg Calculation Used for Recommendations Kcal/kg Additional Notes Pro needs >1.2g/kg: >66g/day Fluid needs 1-1.5L/day Nutrition Intervention Change Diet Order: Continue current diet order Goal #1 PO intakes to meet at least 75 % energy and pro needs Goal #2 Wt maintenance and/or gain Anticipated Discharge Needs: Continue Renal diet Follow-Up By: 12/05/21 Additional Comments F/U: intakes, need for ONS
[2021-12-03 00:03] LABS: Basophils % (Auto) 0.6 % (0.0-1.8); Eosinophils # (Auto) 0.1 K/mm3 (0.0-0.4); Eosinophils % (Auto) 2.9 % (0.0-4.3); Hematocrit 31.9 % (30.3-42.9); Hemoglobin 10.1 gm/dl (10.1-14.3); Lymphocytes # (Auto) 0.8 K/mm3 (1.2-5.4); Lymphocytes % (Auto) 21.6 % (13.4-35.0); Mean Corpuscular HGB Conc 32 % (30-34); Mean Corpuscular Volume 92 fl (79-97); Monocytes # (Auto) 0.5 K/mm3 (0.0-0.8); Platelet Count 127 K/mm3 (140-440); Red Blood Count 3.48 M/mm3 (3.65-5.03); Red Cell Distribution Width 15.5 % (13.2-15.2)
[2021-12-03 00:21] LABS: Calcium 8.1 mg/dL (8.4-10.2)
[2021-12-03 01:10] LABS: C-Reactive Protein 1.7 mg/dL (0.00-1.30)
[2021-12-03 06:41] LABS: Calcium 8.6 mg/dL (8.4-10.2)
--- NOTE | 2021-12-03 08:23 | Progress Note ---
Assessment and Plan Assessment and plan: Elevated D-dimer: We will obtain a VQ scan or CTA chest followed by hemodialysis tomorrow and lower extremity ultrasound to rule out DVT. 85 years old female with end-stage renal disease on hemodialysis was brought to the emergency room because of generalized weakness. She has been feeling ill with mild cough nausea, anorexia and some diarrhea since 7 to 10 days. Symptoms improving but still weak and not able to eat much. She was not able to go for dialysis since is feeling ill and weak. She is vaccinated including booster dose for COVID-19. Lives with her daughter and her son-in-law. patient did not have dialysis since last Sunday which is approximately 9 days now. Patient is alert, oriented and stated that she go to [facility] [place] and her college advisor named Dr. Limon'shantanu. Patient denied any chest pain or shortness of breath. No nausea or vomiting. In the emergency room patient found to have hyperkalemia with a potassium of 6.3. BUN of 69 and creatinine 15.1. patient received albuterol, dextrose, insulin and calcium chloride. Subsequently case discussed the patient with Dr. Delfino Jaramillo, college advisor on-call and college advisor will hemodialyzed the patient emergently. -- End-stage renal disease needing dialysis Current Visit: No Status: Acute Patient was unable to go for hemodialysis since sick with GI symptoms and some cough. Noted to be hyperkalemic Patient already get calcium chloride 1 g IV x1 dose, insulin 5 units regular insulin, Kayexalate 60 g p.o. once. And D50. Case discussed with on-call nephrology Dr. Hunter Jaramillo, underwent emergent hemodialysis and potassium normalized. Patient is currently euvolemic. Receiving dialysis as per schedule. --Acute hyperkalemia Current Visit: No Status: Acute Patient already get calcium chloride 1 g IV x1 dose, insulin 5 units regular insulin, Kayexalate 60 g p.o. once. And D50. Case discussed with on-call nephrology Dr. Hunter Jaramillo, patient underwent hemodialysis emergently, potassium normalized since. Likely etiology of hyperkalemia is noncompliance with d ialysis. -- COVID-19 acute infection: 12/01/2021 Acute illness with nausea, anorexia, mild diarrhea and cough generalized weakness since poorly eating x10 days. She has been feeling ill with mild cough nausea, anorexia and some diarrhea since 7 to 10 days. Symptoms improving but still weak and not able to eat much. She was not able to go for dialysis since is feeling ill and weak. She is vaccinated including booster dose against COVID-19. PCR test for COVID-19 posi tive 12/01. Resumed renal diet as tolerated. No nausea or diarrhea. Appetite is improved. Started eating. Ordered PT. Supportive measures. No indication for steroids or remdesivir. --hypotension Likely due to poor p.o. intake. She is not on any hypertensives. Improved after renal normal saline bolus, 500 mL x 1 on 12/01. DVT prophylaxis Current Visit: Yes Status: Acute Heparin 5000 units subcu every 8 hours for DVT prophylaxis. Pepcid for GI prophylaxis. Patient is a full code Disposition: Continue current management , PT OT evaluation and patient is stable DC planning per case management Daily Hospital course 12/03/2021; patient has elevated D-dimers, will check VQ scan On room air saturating well, no hypoxia today Or CTA chest tomorrow followed by hemodialysis, will set up after consulting with college advisor Continue inflammatory markers History Interval history: I have seen and examined the patient at the bedside Patient's chart and medications reviewed Patient with COVID-19 On room air Patient has no new complaints Hospitalist Physical - Constitutional Vitals: Temp Pulse Resp BP Pulse Ox 98.2 F 64 18 99/28 96 12/03/21 04:37 12/03/21 04:37 12/03/21 04:37 12/03/21 04:37 12/03/21 04:37 General appearance: Present: no acute distress, well-nourished - EENT Eyes: Present: PERRL, EOM intact - Neck Neck: Present: supple, normal ROM - Respiratory Respiratory effort: normal Respiratory: bilateral: diminished, negative: rales, rhonchi, wheezing - Cardiovascular Rhythm: regular Heart Sounds: Present: S1 & S2 - Extremities Extremities: no ischemia, No edema - Abdominal General gastrointestinal: soft, non-tender, non-distended, normal bowel sounds - Integumentary Integumentary: Present: clear, warm - Psychiatric Psychiatric: appropriate mood/affect, cooperative - Neurologic Neurologic: CNII-XII intact, moves all extremities Results - Labs CBC & Chem 7: 12/02/21 22:55 12/03/21 06:05 Labs: Laboratory Last Values WBC 3.8 K/mm3 (4.5-11.0) L 12/02/21 22:55 RBC 3.48 M/mm3 (3.65-5.03) L 12/02/21 22:55 Hgb 10.1 gm/dl (10.1-14.3) D 12/02/21 22:55 Hct 31.9 % (30.3-42.9) D 12/02/21 22:55 MCV 92 fl (79-97) 12/02/21 22:55 MCH 29 pg (28-32) 12/02/21 22: MCHC 32 % (30-34) 12/02/21 22: RDW 15.5 % (13.2-15.2) H 12/02/21 22:55 Plt Count 127 K/mm3 (140-440) L 12/02/21 22:55 Lymph % (Auto) 21.6 % (13.4-35.0) 12/02/21 22: [place] % (Auto) 13.0 % (0.0-7.3) H 12/02/21 22:55 Eos % (Auto) 2.9 % (0.0-4.3) 12/02/21: Baso % (Auto) 0.6 % (0.0-1.8) 12/02/21 22:55 Lymph # (Auto) 0.8 K/mm3 (1.2-5.4) L 12/02/21 22: [place] # (Auto) 0.5 K/mm3 (0.0-0.8) 12/02/21 22: Eos # (Auto) 0.1 K/mm3 (0.0-0.4) 12/02/21 22: Baso # (Auto) 0.0 K/mm3 (0.0-0.1) 12/02/21 22: Seg Neutrophils % 61.9 % (40.0-70.0) 12/02/21 22: Seg Neutrophils # 2.3 K/mm3 (1.8-7.7) 12/02/21 22:55 D-Dimer 952.34 ng/mlDDU (0-234) H 12/02/21 22:55 Sodium 139 mmol/L (137-145) 12/03/21 06:05 Potassium 4.5 mmol/L (3.6-5.0) 12/03/21 06:05 Chloride 100.3 mmol/L (98-107) 12/03/21 06:05 Carbon Dioxide 25 mmol/L (22-30) 12/03/21 06:05 Anion Gap 18 mmol/L 12/03/21 06:05 BUN 27 mg/dL (7-17) H 12/03/21 06:05 Creatinine 7.8 mg/dL (0.6-1.2) H 12/03/21 06:05 Estimated GFR 6 ml/min 12/03/21 06:05 BUN/Creatinine Ratio 3 % 12/03/21 06:05 Glucose 91 mg/dL (65-100) 12/03/21 06:05 POC Glucose 133 mg/dL (70-105) H 11/30/21 17:26 Calcium 8.6 mg/dL (8.4-10.2) 12/03/21 06:05 Total Bilirubin 0.40 mg/dL (0.1-1.2) 12/02/21 22:55 AST 36 units/L (5-40) 12/02/21 22:55 ALT 9 units/L (7-56) 12/02/21 22:55 Alkaline Phosphatase 68 units/L (35-129) 12/02/21 22:55 C-Reactive Protein 1.50 mg/dL (0.00-1.30) H 12/03/21 06:05 Total Protein 4.8 g/dL (6.3-8.2) L 12/02/21 22:55 Albumin 3.0 g/dL (3.9-5) L 12/02/21 22:55 Albumin/Globulin Ratio 1.7 % 12/02/21 22:55 LDL Cholesterol Direct 82 mg/dL (50-130) 12/02/21 22:55 Coronavirus (PCR) Positive (Negative) A 12/01/21 Unknown Hepatitis A IgM Ab Non-reactive (NonReactive) 11/30/21 04:15 Hep Bs Antigen Nonreactive (Negative) 11/30/21 04:15 Hep B Core IgM Ab Non-reactive (NonReactive) 11/30/21 04:15 Hepatitis C Antibody Non-reactive (NonReactive) 11/30/21 04:15 Vasquez/IV: Voiding Method Bedpan Active Medications - Current Medications Current Medications: Generic Name Dose Route Start Last Admin Trade Name Freq PRN Reason Stop Dose Admin Acetaminophen 650 mg 11/30/21 01:25 12/02/21 16:49 Acetaminophen 325 Mg Tab PO 650 mg Q4H PRN Administration Pain MILD(1-3)/Fever >100.5/JOSUE Famotidine 20 mg 11/30/21 10:00 12/02/21 09:47 Famotidine 20 Mg Tab PO 20 mg DAILY ROBERT Administration Heparin Sodium (Porcine) 5,000 unit 11/30/21 10:00 12/02/21 22:02 Heparin 5,000 Unit/1 Ml Vial SUB-Q 5,000 unit Q12HR ROBERT Administration Sodium Chloride 100 mls @ 999 mls/hr 11/30/21 12:00 Nacl 0.9% IV RALPH PRN Hypotension Ondansetron HCl 4 mg 11/30/21 01:25 Ondansetron 4 Mg/2 Ml Inj IV Q8H PRN Nausea And Vomiting Sodium Chloride 10 ml 11/30/21 10:00 12/02/21 22:04 Sodium Chloride 0.9% 10 Ml Flush Syringe IV 10 ml BID ROBERT Administration Sodium Chloride 10 ml 11/30/21 01:25 Sodium Chloride 0.9% 10 Ml Flush Syringe IV PRN PRN LINE FLUSH Nutrition/Malnutrition Assess - Dietary Evaluation Nutrition/Malnutrition Findings: Nutrition Notes Start: 12/02/21 10:51 Freq: Status: Active Protocol: Document 12/02/21 10:51 JAGJIT (Rec: 12/02/21 10:57 JAGJIT [id number]) Nutrition Notes Need for Assessment generated from: pickler helper Initial or Follow up Assessment Current Diagnosis CKD (stage V CKD) Other Pertinent Diagnosis Weakness, Missed HD, COVID-19 (+) Current Diet Renal Labs/Tests No current available; K 6.3 upon admission Pertinent Medications Reviewed Height 5 ft 6 in Weight 54.6 kg [place] Body Weight (kg) 59.09 BMI 19.4 Weight Status Underweight Subjective/Other Information Pt screened for skin risk ( Hermann score unavailable), chewing difficulty and hx of receiving NTR support. Pt admitted sec to missed HD. Burn Absent Trauma Absent Minimum of two criteria No #1 Nutrition Diagnosis Predicted suboptimal energy intake Etiology advanced age, weakness, COVID- 19 As Evidenced by Signs and Symptoms pt refused meals when first admitted, pt underweight for age Is patient on ventilator? No Is Patient Ambulatory and/or Out of Bed No REE-([facility]-confined to bed) 1228.608 Kcal/Kg value to use for calculation 28 Approximate Energy Requirements Using 1529 kcal/Kg Calculation Used for Recommendations Kcal/kg Additional Notes Pro needs >1.2g/kg: >66g/day Fluid needs 1-1.5L/day Nutrition Intervention Change Diet Order: Continue current diet order Goal #1 PO intakes to meet at least 75 % energy and pro needs Goal #2 Wt maintenance and/or gain Anticipated Discharge Needs: Continue Renal diet Follow-Up By: 12/05/21 Additional Comments F/U: intakes, need for ONS
[2021-12-03] MEDS: HEPARIN 5,000 UNIT/1 ML VIAL SUB-Q SCH ×2 (10:37→22:01)
[2021-12-03] MEDS: FAMOTIDINE 20 MG TAB PO SCH (10:37)
--- NOTE | 2021-12-03 11:56 | Progress Note ---
Assessment and Plan ESRD on HD: Hyperkalemia: Metabolic acidosis: Thrombocytopenia: -discussed with HD nurse, due to staff shortage, will reschedule her HD for tomorrow -will assess dialysis daily -Low K diet -Recheck BMP -Eval for HD need daily -Strict I/Os Subjective Date of service: 12/03/21 Principal diagnosis: ESRD Interval history: no overnight events Objective - Vital Signs Vital signs: Vital Signs - 12hr 12/03/21 12/03/21 12/03/21 04:37 10:35 10:58 Temperature 98.2 F 98.0 F Pulse Rate 64 68 Respiratory 18 20 Rate Blood Pressure 99/28 169/78 O2 Sat by Pulse 96 98 97 Oximetry - Lab 12/02/21 22:55 12/03/21 06:05 Most recent lab results Calcium 8.6 mg/dL (8.4-10.2) 12/03/21 06:05 Medications & Allergies - Medications Allergies/Adverse Reactions: Allergies No Known Allergies Allergy (Verified 11/30/21 03:14) Active Medications: Generic Name Dose Route Start Last Admin Trade Name Freq PRN Reason Stop Dose Admin Acetaminophen 650 mg 11/30/21 01:25 12/02/21 16:49 Acetaminophen 325 Mg Tab PO 650 mg Q4H PRN Administration Pain MILD(1-3)/Fever >100.5/JOSUE Famotidine 20 mg 11/30/21 10:00 12/03/21 10:37 Famotidine 20 Mg Tab PO 20 mg DAILY ROBERT Administration Heparin Sodium (Porcine) 5,000 unit 11/30/21 10:00 12/03/21 10:37 Heparin 5,000 Unit/1 Ml Vial SUB-Q 5,000 unit Q12HR ROBERT Administration Sodium Chloride 100 mls @ 999 mls/hr 11/30/21 12:00 Nacl 0.9% IV RALPH PRN Hypotension Ondansetron HCl 4 mg 11/30/21 01:25 Ondansetron 4 Mg/2 Ml Inj IV Q8H PRN Nausea And Vomiting Sodium Chloride 10 ml 11/30/21 10:00 12/03/21 10:37 Sodium Chloride 0.9% 10 Ml Flush Syringe IV 10 ml BID ROBERT Administration Sodium Chloride 10 ml 11/30/21 01:25 Sodium Chloride 0.9% 10 Ml Flush Syringe IV PRN PRN LINE FLUSH
--- NOTE | 2021-12-03 23:03 | Progress Note ---
Assessment and Plan Assessment and plan: 73-year-old female patient with significant past medical history of atrial fibrillation, heart failure, hypertension, bronchial asthma, morbid obesity noncompliant with medications was admitted with acute hypoxic respiratory failure requiring BiPAP, significantly improved with antifailure medications, is COVID-positive, on remdesivir and steroids, cardiology and ID following, Assessment and plan: --COVID-19 infection; [place] PCR 12/01/2021 Hypoxia requiring 3 L of supplemental oxygen Continue dexamethasone, remdesivir per protocol Home O2 evaluation prior to discharge Prone positioning, Inflammatory markers Follow ID evaluation and recommendations -- Acute hypoxic respiratory failure; Requiring BiPAP, on admission continue oxygen, titrate O2 sats more than 90% Currently on 3 L nasal cannula oxygen saturating 95 to 96% Probably secondary to acute congestive heart failure As well as bronchial asthma exacerbation Continue anti-failure medications, oxygen and nebulizers -- Acute on chronic systolic congestive heart failure echo for LV function and EF 35 to 40% IV diuretics, fluid restriction, low-sodium diet Follow cardiology evaluation and recommendations --History of atrial fibrillation/noncompliant with medications Beta-blockers, anticoagulation with Xarelto Cardiology following --Multifocal airspace disease; possible COVID-19 pneumonia Partly congestive heart failure Improved with diuretics, closely monitor --Acute exacerbation of bronchial asthma; Oxygen titrate O2 sats to more than 90% BiPAP as needed, wean as tolerated Nebulizers, IV steroids, IV antibiotics, inhalation steroids Supportive care, pulmonary consult if needed --Elevated D-dimers; CTA chest negative for PE Lower extremity venous Doppler negative for DVT --Lactic acidosis; resolved -- Morbid obesity; BMI 46.6 --Possible obstructive sleep apnea; Patient needs outpatient sleep study to rule out ALBINA BiPAP/CPAP at night --DVT prophylaxis; Subcu Lovenox --Medical noncompliance; Patient strongly advised the importance of adhering to the treatment plan Verbalized understanding -- Full CODE STATUS; Closely monitor the patient and adjust management as needed Patient downgraded from IMCU to medical floor Plan of care reviewed with the patient and her nurse --Advance care planning; 30 minutes additional I explained in detail with the patient her condition All of you all of you want or you do not have the discussed tests and reports, treatment plan need for BiPAP , that we transition to nasal cannula oxygen discussed outpatient sleep study when patient is discharged dietary modification, exercise as tolerated and weight reduction when stable I also advised bariatric surgical consultation when she is medically stable, for possible weight reduction programs Closely monitor the patient and adjust management as needed 12/01/2021; acute systolic congestive heart failure, EF 35 to 40% Patient is on antifailure medications, diuretics, low-dose beta-blockers COVID-19 positive status, consult ID and cardiology tomorrow 12/02/2021; consulted ID and cardiology 12/03/2021; patient feels slightly better, cardiac medications resumed ID and cardiology evaluation recommendations noted and appreciated Continue remdesivir, steroids and current management 12/04/2021; hypoxia, COVID-19, elevated D-dimers rule out PE on CTA chest Discussed with nephrology, okay to get CTA with contrast followed by hemodialysis today or tomorrow CTA chest requested History Interval history: I seen and examined the patient at the bedside Patient's chart and medications reviewed Patient feels slightly better On supplemental oxygen Vital signs noted Hospitalist Physical - Constitutional Vitals: Temp Pulse Resp BP Pulse Ox 98.1 F 62 16 101/28 94 12/03/21 20:34 12/03/21 20:34 12/03/21 20:34 12/03/21 20:34 12/03/21 20:34 General appearance: Present: no acute distress, well-nourished - EENT Eyes: Present: PERRL, EOM intact - Neck Neck: Present: supple, normal ROM - Respiratory Respiratory effort: normal Respiratory: bilateral: diminished, negative: rales, rhonchi, wheezing - Cardiovascular Rhythm: regular Heart Sounds: Present: S1 & S2 - Extremities Extremities: no ischemia, No edema - Abdominal General gastrointestinal: soft, non-tender, non-distended, normal bowel sounds - Integumentary Integumentary: Present: clear, warm - Psychiatric Psychiatric: appropriate mood/affect, cooperative - Neurologic Neurologic: CNII-XII intact, moves all extremities Results - Labs CBC & Chem 7: 12/02/21 22:55 12/04/21 05:09 Labs: Laboratory Last Values WBC 3.8 K/mm3 (4.5-11.0) L 12/02/21 22:55 RBC 3.48 M/mm3 (3.65-5.03) L 12/02/21 22:55 Hgb 10.1 gm/dl (10.1-14.3) D 12/02/21 22:55 Hct 31.9 % (30.3-42.9) D 12/02/21 22:55 MCV 92 fl (79-97) 12/02/21 22:55 MCH 29 pg (28-32) 12/02/21 22:55 MCHC 32 % (30-34) 12/02/21 22:55 RDW 15.5 % (13.2-15.2) H 12/02/21 22:55 Plt Count 127 K/mm3 (140-440) L 12/02/21 22:55 Lymph % (Auto) 21.6 % (13.4-35.0) 12/02/21 22:55 [place] % (Auto) 13.0 % (0.0-7.3) H 12/02/21 22:55 Eos % (Auto) 2.9 % (0.0-4.3) 12/02/21 22:55 Baso % (Auto) 0.6 % (0.0-1.8) 12/02/21 22:55 Lymph # (Auto) 0.8 K/mm3 (1.2-5.4) L 12/02/21 22:55 [place] # (Auto) 0.5 K/mm3 (0.0-0.8) 12/02/21 22:55 Eos # (Auto) 0.1 K/mm3 (0.0-0.4) 12/02/21 22:55 Baso # (Auto) 0.0 K/mm3 (0.0-0.1) 12/02/21 22:55 Seg Neutrophils % 61.9 % (40.0-70.0) 12/02/21 22:55 Seg Neutrophils # 2.3 K/mm3 (1.8-7.7) 12/02/21 22:55 D-Dimer 952.34 ng/mlDDU (0-234) H 12/02/21 22:55 Sodium 139 mmol/L (137-145) 12/03/21 06:05 Potassium 4.5 mmol/L (3.6-5.0) 12/03/21 06:05 Chloride 100.3 mmol/L (98-107) 12/03/21 06:05 Carbon Dioxide 25 mmol/L (22-30) 12/03/21 06:05 Anion Gap 18 mmol/L 12/03/21 06:05 BUN 27 mg/dL (7-17) H 12/03/21 06:05 Creatinine 7.8 mg/dL (0.6-1.2) H 12/03/21 06:05 Estimated GFR 6 ml/min 12/03/21 06:05 BUN/Creatinine Ratio 3 % 12/03/21 06:05 Glucose 91 mg/dL (65-100) 12/03/21 06:05 POC Glucose 133 mg/dL (70-105) H 11/30/21 17:26 Calcium 8.6 mg/dL (8.4-10.2) 12/03/21 06:05 Total Bilirubin 0.40 mg/dL (0.1-1.2) 12/02/21 22:55 AST 36 units/L (5-40) 12/02/21 22:55 ALT 9 units/L (7-56) 12/02/21 22:55 Alkaline Phosphatase 68 units/L (35-129) 12/02/21 22:55 C-Reactive Protein 1.50 mg/dL (0.00-1.30) H 12/03/21 06:05 Total Protein 4.8 g/dL (6.3-8.2) L 12/02/21 22:55 Albumin 3.0 g/dL (3.9-5) L 12/02/21 22:55 Albumin/Globulin Ratio 1.7 % 12/02/21 22:55 LDL Cholesterol Direct 82 mg/dL (50-130) 12/02/21 22:55 Coronavirus (PCR) Positive (Negative) A 12/01/21 Unknown Hepatitis A IgM Ab Non-reactive (NonReactive) 11/30/21 04:15 Hep Bs Antigen Nonreactive (Negative) 11/30/21 04:15 Hep B Core IgM Ab Non-reactive (NonReactive) 11/30/21 04:15 Hepatitis C Antibody Non-reactive (NonReactive) 11/30/21 04:15 Vasquez/IV: Voiding Method Diaper Active Medications - Current Medications Current Medications: Generic Name Dose Route Start Last Admin Trade Name Freq PRN Reason Stop Dose Admin Acetaminophen 650 mg 11/30/21 01:25 12/02/21 16:49 Acetaminophen 325 Mg Tab PO 650 mg Q4H PRN Administration Pain MILD(1-3)/Fever >100.5/JOSUE Famotidine 20 mg 11/30/21 10:00 12/03/21 10:37 Famotidine 20 Mg Tab PO 20 mg DAILY ROBERT Administration Heparin Sodium (Porcine) 5,000 unit 11/30/21 10:00 12/03/21 22:01 Heparin 5,000 Unit/1 Ml Vial SUB-Q 5,000 unit Q12HR ROBERT Administration Sodium Chloride 100 mls @ 999 mls/hr 11/30/21 12:00 Nacl 0.9% IV RALPH PRN Hypotension Ondansetron HCl 4 mg 11/30/21 01:25 Ondansetron 4 Mg/2 Ml Inj IV Q8H PRN Nausea And Vomiting Sodium Chloride 10 ml 11/30/21 10:00 12/03/21 22:02 Sodium Chloride 0.9% 10 Ml Flush Syringe IV 10 ml BID ROBERT Administration Sodium Chloride 10 ml 11/30/21 01:25 Sodium Chloride 0.9% 10 Ml Flush Syringe IV PRN PRN LINE FLUSH Nutrition/Malnutrition Assess - Dietary Evaluation Nutrition/Malnutrition Findings: Nutrition Notes Start: 12/02/21 10:51 Freq: Status: Active Protocol: Document 12/02/21 10:51 JAGJIT (Rec: 12/02/21 10:57 [facility] [id number]) Nutrition Notes Need for Assessment generated from: financial reserve clerk Initial or Follow up Assessment Current Diagnosis CKD (stage V CKD) Other Pertinent Diagnosis Weakness, Missed HD, COVID-19 (+) Current Diet Renal Labs/Tests No current available; K 6.3 upon admission Pertinent Medications Reviewed Height 5 ft 6 in Weight 54.6 kg [place] Body Weight (kg) 59.09 BMI 19.4 Weight Status Underweight Subjective/Other Information Pt screened for skin risk ( Hermann score unavailable), chewing difficulty and hx of receiving NTR support. Pt admitted sec to missed HD. Burn Absent Trauma Absent Minimum of two criteria No #1 Nutrition Diagnosis Predicted suboptimal energy intake Etiology advanced age, weakness, COVID- 19 As Evidenced by Signs and Symptoms pt refused meals when first admitted, pt underweight for age Is patient on ventilator? No Is Patient Ambulatory and/or Out of Bed No REE-([facility]-confined to bed) 1228.608 Kcal/Kg value to use for calculation 28 Approximate Energy Requirements Using 1529 kcal/Kg Calculation Used for Recommendations Kcal/kg Additional Notes Pro needs >1.2g/kg: >66g/day Fluid needs 1-1.5L/day Nutrition Intervention Change Diet Order: Continue current diet order Goal #1 PO intakes to meet at least 75 % energy and pro needs Goal #2 Wt maintenance and/or gain Anticipated Discharge Needs: Continue Renal diet Follow-Up By: 12/05/21 Additional Comments F/U: intakes, need for ONS
[2021-12-04 07:08] LABS: Calcium 8.6 mg/dL (8.4-10.2)
[2021-12-04] MEDS: FAMOTIDINE 20 MG TAB PO SCH (09:23)
[2021-12-04] MEDS: HEPARIN 5,000 UNIT/1 ML VIAL SUB-Q SCH ×2 (09:24→21:05)
--- NOTE | 2021-12-04 09:26 | Progress Note ---
Assessment and Plan ESRD on HD: Hyperkalemia: Metabolic acidosis: Thrombocytopenia: -HD today for clearance and volume removal after CTA -will assess dialysis daily -Low K diet -Recheck BMP -Eval for HD need daily -Strict I/Os Subjective Date of service: 12/04/21 Principal diagnosis: ESRD Interval history: denies acute issues, comfortable Objective - Vital Signs Vital signs: Vital Signs - 12hr 12/03/21 12/04/21 23:00 04:48 Temperature 98.1 F Pulse Rate 63 Respiratory 16 16 Rate Blood Pressure 140/36 O2 Sat by Pulse 95 96 Oximetry - General Appearance General appearance: well-developed, well-nourished EENT: ATNC, PERRL, mucous membranes moist Neck: no JVD, no carotid bruit Respiratory: Present: Clear to Ascultation. Absent: Rales, Ronchi Cardiology: regular, S1S2 Gastrointestinal: normoactive bowel sounds, no tenderness, no distended Integumentary: no rash, warm and dry Neurologic: no focal deficit Psychiatric: cooperative - Lab 12/02/21 22:55 12/04/21 05:09 Most recent lab results Calcium 8.6 mg/dL (8.4-10.2) 12/04/21 05:09 Medications & Allergies - Medications Allergies/Adverse Reactions: Allergies No Known Allergies Allergy (Verified 11/30/21 03:14) Active Medications: Generic Name Dose Route Start Last Admin Trade Name Freq PRN Reason Stop Dose Admin Acetaminophen 650 mg 11/30/21 01:25 12/02/21 16:49 Acetaminophen 325 Mg Tab PO 650 mg Q4H PRN Administration Pain MILD(1-3)/Fever >100.5/JOSUE Famotidine 20 mg 11/30/21 10:00 12/04/21 09:23 Famotidine 20 Mg Tab PO 20 mg DAILY ROBERT Administration Heparin Sodium (Porcine) 5,000 unit 11/30/21 10:00 12/04/21 09:24 Heparin 5,000 Unit/1 Ml Vial SUB-Q 5,000 unit Q12HR ROBERT Administration Sodium Chloride 100 mls @ 999 mls/hr 11/30/21 12:00 Nacl 0.9% IV RALPH PRN Hypotension Ondansetron HCl 4 mg 11/30/21 01:25 Ondansetron 4 Mg/2 Ml Inj IV Q8H PRN Nausea And Vomiting Sodium Chloride 10 ml 11/30/21 10:00 12/04/21 09:24 Sodium Chloride 0.9% 10 Ml Flush Syringe IV 10 ml BID ROBERT Administration Sodium Chloride 10 ml 11/30/21 01:25 Sodium Chloride 0.9% 10 Ml Flush Syringe IV PRN PRN LINE FLUSH
[2021-12-04] MEDS ORDERED: guaiFENesin DM 200/20 MG ORAL LIQD 10 ML PO PRN (15:00)
[2021-12-04] MEDS ORDERED: SODIUM CHLORIDE 0.9% 100 ML IV PRN (16:00)
--- NOTE | 2021-12-05 08:15 | Progress Note ---
Assessment and Plan Assessment and plan: Elevated D-dimer: CTA chest negative for PE BilLE venous Doppler; negative for DVT 85 years old female with end-stage renal disease on hemodialysis was brought to the emergency room because of generalized weakness. She has been feeling ill with mild cough nausea, anorexia and some diarrhea since 7 to 10 days. Symptoms improving but still weak and not able to eat much. She was not able to go for dialysis since is feeling ill and weak. She is vaccinated including booster dose for COVID-19. Lives with her daughter and her son-in-law. patient did not have dialysis since last Sunday which is approximately 9 days now. Patient is alert, oriented and stated that she go to [facility] [place] and her shield runner named Dr. Limon's. Patient denied any chest pain or shortness of breath. No nausea or vomiting. In the emergency room patient found to have hyperkalemia with a potassium of 6.3. BUN of 69 and creatinine 15.1. patient received albuterol, dextrose, insulin and calcium chloride. Subsequently case discussed the patient with Dr. Delfino Jaramillo, shield runner on-call and shield runner will hemodialyzed the patient emergently. -- End-stage renal disease needing dialysis Current Visit: No Status: Acute Patient was unable to go for hemodialysis since sick with GI symptoms and some cough. Noted to be hyperkalemic Patient already get calcium chloride 1 g IV x1 dose, insulin 5 units regular insulin, Kayexalate 60 g p.o. once. And D50. Case discussed with on-call nephrology Dr. Hunter Jaramillo, underwent emergent hemodialysis and potassium normalized. Patient is currently euvolemic. Receiving dialysis as per schedule. --Acute hyperkalemia Current Visit: No Status: Acute Patient already get calcium chloride 1 g IV x1 dose, insulin 5 units regular insulin, Kayexalate 60 g p.o. once. And D50. Case discussed with on-call nephrology Dr. Hunter Jaramillo, patient underwent hemodialysis emergently, potassium normalized since. Likely etiology of hyperkalemia is noncompliance with dialysis. -- COVID-19 acute infection: 12/01/2021 Acute illness with nausea, anorexia, mild diarrhea and cough generalized weakness since poorly eating x10 days. She has been feeling ill with mild cough nausea, anorexia and some diarrhea since 7 to 10 days. Symptoms improving but still weak and not able to eat much. She was not able to go for dialysis since is feeling ill and weak. She is vaccinated including booster dose against COVID-19. PCR test for COVID-19 positive 12/01. Resumed renal diet as tolerated. No nausea or diarrhea. Appetite is improved. Started eating. Ordered PT. Supportive measures. No indication for steroids or remdesivir. --hypotension Likely due to poor p.o. intake. She is not on any hypertensives. Improved after renal normal saline bolus, 500 mL x 1 on 12/01. DVT prophylaxis Current Visit: Yes Status: Acute Heparin 5000 units subcu every 8 hours for DVT prophylaxis. Pepcid for GI prophylaxis. Patient is a full code Disposition: Continue current management , PT OT evaluation and patient is stable DC planning per case management Daily Hospital course 12/03/2021; patient has elevated D-dimers, will check VQ scan On room air saturating well, no hypoxia today Or CTA chest tomorrow followed by hemodialysis, will set up after consulting with shield runner Continue inflammatory markers 12/04/2021; discussed with nephrology, okay to get CTA chest followed by hemodialysis However patient refused to consent 12/05/2021; CTA chest negative for PE, venous Doppler negative for DVT History Interval history: Patient did not have CTA chest yesterday to rule out PE We will check lower extremity venous Doppler to rule out DVT Saturating well on room air Hospitalist Physical - Constitutional Vitals: Temp Pulse Resp BP Pulse Ox 97.8 F 68 18 112/70 99 12/05/21 01:25 12/05/21 01:25 12/05/21 01:25 12/05/21 01:25 12/05/21 01:25 General appearance: Present: no acute distress, well-nourished - EENT Eyes: Present: PERRL, EOM intact - Neck Neck: Present: supple, normal ROM - Respiratory Respiratory effort: normal Respiratory: bilateral: diminished, rales, negative: rhonchi, wheezing - Cardiovascular Rhythm: regular Heart Sounds: Present: S1 & S2 - Extremities Extremities: no ischemia, No edema - Abdominal General gastrointestinal: soft, non-tender, non-distended, normal bowel sounds - Integumentary Integumentary: Present: clear, warm - Psychiatric Psychiatric: appropriate mood/affect, cooperative - Neurologic Neurologic: moves all extremities Results - Labs CBC & Chem 7: 12/02/21 22:55 12/05/21 10:24 Labs: Laboratory Last Values WBC 3.8 K/mm3 (4.5-11.0) L 12/02/21 22:55 RBC 3.48 M/mm3 (3.65-5.03) L 12/02/21 22:55 Hgb 10.1 gm/dl (10.1-14.3) D 12/02/21 22:55 Hct 31.9 % (30.3-42.9) D 12/02/21 22:55 MCV 92 fl (79-97) 12/02/21 22:55 MCH 29 pg (28-32) 12/02/21 22:55 MCHC 32 % (30-34) 12/02/21 22:55 RDW 15.5 % (13.2-15.2) H 12/02/21 22:55 Plt Count 127 K/mm3 (140-440) L 12/02/21 22:55 Lymph % (Auto) 21.6 % (13.4-35.0) 12/02/21 22:55 [place] % (Auto) 13.0 % (0.0-7.3) H 12/02/21 22:55 Eos % (Auto) 2.9 % (0.0-4.3) 12/02/21 22:55 Baso % (Auto) 0.6 % (0.0-1.8) 12/02/21 22:55 Lymph # (Auto) 0.8 K/mm3 (1.2-5.4) L 12/02/21 22:55 [place] # (Auto) 0.5 K/mm3 (0.0-0.8) 12/02/21 22:55 Eos # (Auto) 0.1 K/mm3 (0.0-0.4) 12/02/21 22:55 Baso # (Auto) 0.0 K/mm3 (0.0-0.1) 12/02/21 22:55 Seg Neutrophils % 61.9 % (40.0-70.0) 12/02/21 22:55 Seg Neutrophils # 2.3 K/mm3 (1.8-7.7) 12/02/21 22:55 D-Dimer 952.34 ng/mlDDU (0-234) H 12/02/21 22:55 Sodium 140 mmol/L (137-145) 12/04/21 05:09 Potassium 4.7 mmol/L (3.6-5.0) 12/04/21 05:09 Chloride 100.2 mmol/L (98-107) 12/04/21 05:09 Carbon Dioxide 24 mmol/L (22-30) 12/04/21 05:09 Anion Gap 21 mmol/L 12/04/21 05:09 BUN 35 mg/dL (7-17) H 12/04/21 05:09 Creatinine 9.6 mg/dL (0.6-1.2) H 12/04/21 05:09 Estimated GFR 5 ml/min 12/04/21 05:09 BUN/Creatinine Ratio 4 % 12/04/21 05:09 Glucose 81 mg/dL (65-100) 12/04/21 05:09 POC Glucose 133 mg/dL (70-105) H 11/30/21 17:26 Calcium 8.6 mg/dL (8.4-10.2) 12/04/21 05:09 Total Bilirubin 0.40 mg/dL (0.1-1.2) 12/02/21 22:55 AST 36 units/L (5-40) 12/02/21 22:55 ALT 9 units/L (7-56) 12/02/21 22:55 Alkaline Phosphatase 68 units/L (35-129) 12/02/21 22:55 C-Reactive Protein 1.50 mg/dL (0.00-1.30) H 12/03/21 06:05 Total Protein 4.8 g/dL (6.3-8.2) L 12/02/21 22:55 Albumin 3.0 g/dL (3.9-5) L 12/02/21 22:55 Albumin/Globulin Ratio 1.7 % 12/02/21 22:55 LDL Cholesterol Direct 82 mg/dL (50-130) 12/02/21 22:55 Coronavirus (PCR) Positive (Negative) A 12/01/21 Unknown Hepatitis A IgM Ab Non-reactive (NonReactive) 11/30/21 04:15 Hep Bs Antigen Nonreactive (Negative) 11/30/21 04:15 Hep B Core IgM Ab Non-reactive (NonReactive) 11/30/21 04:15 Hepatitis C Antibody Non-reactive (NonReactive) 11/30/21 04:15 Vasquez/IV: Voiding Method Toilet Active Medications - Current Medications Current Medications: Generic Name Dose Route Start Last Admin Trade Name Freq PRN Reason Stop Dose Admin Acetaminophen 650 mg 11/30/21 01:25 12/02/21 16:49 Acetaminophen 325 Mg Tab PO 650 mg Q4H PRN Administration Pain MILD(1-3)/Fever >100.5/JOSUE Famotidine 20 mg 11/30/21 10:00 12/04/21 09:23 Famotidine 20 Mg Tab PO 20 mg DAILY ROBERT Administration Guaifenesin 10 ml 12/04/21 15:00 12/04/21 15:45 Guaifenesin Dm 200/20 Mg Oral Liqd 10 Ml PO 10 ml Q4H PRN Administration Cough Heparin Sodium (Porcine) 5,000 unit 11/30/21 10:00 12/04/21 21:05 Heparin 5,000 Unit/1 Ml Vial SUB-Q 5,000 unit Q12HR ROBERT Administration Sodium Chloride 100 mls @ 999 mls/hr 12/04/21 16:00 Nacl 0.9% IV RALPH PRN Hypotension Ondansetron HCl 4 mg 11/30/21 01:25 Ondansetron 4 Mg/2 Ml Inj IV Q8H PRN Nausea And Vomiting Sodium Chloride 10 ml 11/30/21 10:00 12/04/21 21:05 Sodium Chloride 0.9% 10 Ml Flush Syringe IV 10 ml BID ROBERT Administration Sodium Chloride 10 ml 11/30/21 01:25 Sodium Chloride 0.9% 10 Ml Flush Syringe IV PRN PRN LINE FLUSH Nutrition/Malnutrition Assess - Dietary Evaluation Nutrition/Malnutrition Findings: Nutrition Notes Start: 12/02/21 10:51 Freq: Status: Active Protocol: Document 12/02/21 10:51 JAGJIT (Rec: 12/02/21 10:57 [email or web address] [id number]) Nutrition Notes Need for Assessment generated from: firebreak cutter Initial or Follow up Assessment Current Diagnosis CKD (stage V CKD) Other Pertinent Diagnosis Weakness, Missed HD, COVID-19 (+) Current Diet Renal Labs/Tests No current available; K 6.3 upon admission Pertinent Medications Reviewed Height 5 ft 6 in Weight 54.6 kg [place] Body Weight (kg) 59.09 BMI 19.4 Weight Status Underweight Subjective/Other Information Pt screened for skin risk ( Hermann score unavailable), chewing difficulty and hx of receiving NTR support. Pt admitted sec to missed HD. Burn Absent Trauma Absent Minimum of two criteria No #1 Nutrition Diagnosis Predicted suboptimal energy intake Etiology advanced age, weakness, COVID- 19 As Evidenced by Signs and Symptoms pt refused meals when first admitted, pt underweight for age Is patient on ventilator? No Is Patient Ambulatory and/or Out of Bed No REE-([place]-confined to bed) 1228.608 Kcal/Kg value to use for calculation 28 Approximate Energy Requirements Using 1529 kcal/Kg Calculation Used for Recommendations Kcal/kg Additional Notes Pro needs >1.2g/kg: >66g/day Fluid needs 1-1.5L/day Nutrition Intervention Change Diet Order: Continue current diet order Goal #1 PO intakes to meet at least 75 % energy and pro needs Goal #2 Wt maintenance and/or gain Anticipated Discharge Needs: Continue Renal diet Follow-Up By: 12/05/21 Additional Comments F/U: intakes, need for ONS
--- NOTE | 2021-12-05 08:20 | Progress Note ---
Assessment and Plan Assessment and plan: Elevated D-dimer: We will obtain a VQ scan or CTA chest followed by hemodialysis tomorrow and lower extremity ultrasound to rule out DVT. 85 years old female with end-stage renal disease on hemodialysis was brought to the emergency room because of generalized weakness. She has been feeling ill with mild cough nausea, anorexia and some diarrhea since 7 to 10 days. Symptoms improving but still weak and not able to eat much. She was not able to go for dialysis since is feeling ill and weak. She is vaccinated including booster dose for COVID-19. Lives with her daughter and her son-in-law. patient did not have dialysis since last Sunday which is approximately 9 days now. Patient is alert, oriented and stated that she go to [facility] [place] and her bone char operator named Dr. Limon'shantanu. Patient denied any chest pain or shortness of breath. No nausea or vomiting. In the emergency room patient found to have hyperkalemia with a potassium of 6.3. BUN of 69 and creatinine 15.1. patient received albuterol, dextrose, insulin and calcium chloride. Subsequently case discussed the patient with Dr. Delfino Jaramillo, bone char operator on-call and bone char operator will hemodialyzed the patient emergently. -- End-stage renal disease needing dialysis Current Visit: No Status: Acute Patient was unable to go for hemodialysis since sick with GI symptoms and some cough. Noted to be hyperkalemic Patient already get calcium chloride 1 g IV x1 dose, insulin 5 units regular insulin, Kayexalate 60 g p.o. once. And D50. Case discussed with on-call nephrology Dr. Hunter Jaramillo, underwent emergent hemodialysis and potassium normalized. Patient is currently euvolemic. Receiving dialysis as per schedule. --Acute hyperkalemia Current Visit: No Status: Acute Patient already get calcium chloride 1 g IV x1 dose, insulin 5 units regular insulin, Kayexalate 60 g p.o. once. And D50. Case discussed with on-call nephrology Dr. Hunter Jaramillo, patient underwent hemodialysis emergently, potassium normalized since. Likely etiology of hyperkalemia is noncompliance with d ialysis. -- COVID-19 acute infection: 12/01/2021 Acute illness with nausea, anorexia, mild diarrhea and cough generalized weakness since poorly eating x10 days. She has been feeling ill with mild cough nausea, anorexia and some diarrhea since 7 to 10 days. Symptoms improving but still weak and not able to eat much. She was not able to go for dialysis since is feeling ill and weak. She is vaccinated including booster dose against COVID-19. PCR test for COVID-19 posi tive 12/01. Resumed renal diet as tolerated. No nausea or diarrhea. Appetite is improved. Started eating. Ordered PT. Supportive measures. No hypoxia , patient saturating on room air, no indication for steroids or remdesivir. --hypotension Likely due to poor p.o. intake. She is not on any hypertensives. Improved after renal normal saline bolus, 500 mL x 1 on 12/01. DVT prophylaxis Current Visit: Yes Status: Acute Heparin 5000 units subcu every 8 hours for DVT prophylaxis. Pepcid for GI prophylaxis. Patient is a full code Disposition: Continue current management , PT OT evaluation and patient is stable DC planning per case management Daily Hospital course 12/03/2021; patient has elevated D-dimers, will check VQ scan On room air saturating well, no hypoxia today Or CTA chest tomorrow followed by hemodialysis, will set up after consulting with bone char operator Continue inflammatory markers 12/04/2021; discussed with bone char operator schedule CTA chest, followed by hemodialysis No hypoxia History Interval history: Seen and examined the patient at the bedside Patient's chart and medications reviewed Patient with end-stage renal disease, COVID-positive status Feels slightly better Hospitalist Physical - Constitutional Vitals: Temp Pulse Resp BP Pulse Ox 97.8 F 68 18 112/70 99 12/05/21 01:25 12/05/21 01:25 12/05/21 01:25 12/05/21 01:25 12/05/21 01:25 General appearance: Present: no acute distress, well-nourished - EENT Eyes: Present: PERRL, EOM intact - Neck Neck: Present: supple, normal ROM - Respiratory Respiratory effort: normal Respiratory: bilateral: diminished, rales, negative: rhonchi, wheezing - Cardiovascular Rhythm: regular Heart Sounds: Present: S1 & S2 - Extremities Extremities: no ischemia, No edema - Abdominal General gastrointestinal: soft, non-tender, non-distended - Integumentary Integumentary: Present: clear, warm - Psychiatric Psychiatric: appropriate mood/affect, cooperative - Neurologic Neurologic: moves all extremities Results - Labs CBC & Chem 7: 12/02/21 22:55 12/04/21 05:09 Labs: Laboratory Last Values WBC 3.8 K/mm3 (4.5-11.0) L 12/02/21 22:55 RBC 3.48 M/mm3 (3.65-5.03) L 12/02/21 22:55 Hgb 10.1 gm/dl (10.1-14.3) D 12/02/21 22:55 Hct 31.9 % (30.3-42.9) D 12/02/21 22:55 MCV 92 fl (79-97) 12/02/21 22:55 MCH 29 pg (28-32) 12/02/21 22:55 MCHC 32 % (30-34) 12/02/21 22:55 RDW 15.5 % (13.2-15.2) H 12/02/21 22:55 Plt Count 127 K/mm3 (140-440) L 12/02/21 22:55 Lymph % (Auto) 21.6 % (13.4-35.0) 12/02/21 22:55 [place] % (Auto) 13.0 % (0.0-7.3) H 12/02/21 22:55 Eos % (Auto) 2.9 % (0.0-4.3) 12/02/21 22:55 Baso % (Auto) 0.6 % (0.0-1.8) 12/02/21 22:55 Lymph # (Auto) 0.8 K/mm3 (1.2-5.4) L 12/02/21 22:55 [place] # (Auto) 0.5 K/mm3 (0.0-0.8) 12/02/21 22:55 Eos # (Auto) 0.1 K/mm3 (0.0-0.4) 12/02/21 22:55 Baso # (Auto) 0.0 K/mm3 (0.0-0.1) 12/02/21 22:55 Seg Neutrophils % 61.9 % (40.0-70.0) 12/02/21 22:55 Seg Neutrophils # 2.3 K/mm3 (1.8-7.7) 12/02/21 22:55 D-Dimer 952.34 ng/mlDDU (0-234) H 12/02/21 22:55 Sodium 140 mmol/L (137-145) 12/04/21 05:09 Potassium 4.7 mmol/L (3.6-5.0) 12/04/21 05:09 Chloride 100.2 mmol/L (98-107) 12/04/21 05:09 Carbon Dioxide 24 mmol/L (22-30) 12/04/21 05:09 Anion Gap 21 mmol/L 12/04/21 05:09 BUN 35 mg/dL (7-17) H 12/04/21 05:09 Creatinine 9.6 mg/dL (0.6-1.2) H 12/04/21 05:09 Estimated GFR 5 ml/min 12/04/21 05:09 BUN/Creatinine Ratio 4 % 12/04/21 05:09 Glucose 81 mg/dL (65-100) 12/04/21 05:09 POC Glucose 133 mg/dL (70-105) H 11/30/21 17:26 Calcium 8.6 mg/dL (8.4-10.2) 12/04/21 05:09 Total Bilirubin 0.40 mg/dL (0.1-1.2) 12/02/21 22:55 AST 36 units/L (5-40) 12/02/21 22:55 ALT 9 units/L (7-56) 12/02/21 22:55 Alkaline Phosphatase 68 units/L (35-129) 12/02/21 22:55 C-Reactive Protein 1.50 mg/dL (0.00-1.30) H 12/03/21 06:05 Total Protein 4.8 g/dL (6.3-8.2) L 12/02/21 22:55 Albumin 3.0 g/dL (3.9-5) L 12/02/21 22:55 Albumin/Globulin Ratio 1.7 % 12/02/21 22:55 LDL Cholesterol Direct 82 mg/dL (50-130) 12/02/21 22:55 Coronavirus (PCR) Positive (Negative) A 12/01/21 Unknown Hepatitis A IgM Ab Non-reactive (NonReactive) 11/30/21 04:15 Hep Bs Antigen Nonreactive (Negative) 11/30/21 04:15 Hep B Core IgM Ab Non-reactive (NonReactive) 11/30/21 04:15 Hepatitis C Antibody Non-reactive (NonReactive) 11/30/21 04:15 Vasquez/IV: Voiding Method Toilet Active Medications - Current Medications Current Medications: Generic Name Dose Route Start Last Admin Trade Name Freq PRN Reason Stop Dose Admin Acetaminophen 650 mg 11/30/21 01:25 12/02/21 16:49 Acetaminophen 325 Mg Tab PO 650 mg Q4H PRN Administration Pain MILD(1-3)/Fever >100.5/JOSUE Famotidine 20 mg 11/30/21 10:00 12/04/21 09:23 Famotidine 20 Mg Tab PO 20 mg DAILY ROBERT Administration Guaifenesin 10 ml 12/04/21 15:00 12/04/21 15:45 Guaifenesin Dm 200/20 Mg Oral Liqd 10 Ml PO 10 ml Q4H PRN Administration Cough Heparin Sodium (Porcine) 5,000 unit 11/30/21 10:00 12/04/21 21:05 Heparin 5,000 Unit/1 Ml Vial SUB-Q 5,000 unit Q12HR ROBERT Administration Sodium Chloride 100 mls @ 999 mls/hr 12/04/21 16:00 Nacl 0.9% IV RALPH PRN Hypotension Ondansetron HCl 4 mg 11/30/21 01:25 Ondansetron 4 Mg/2 Ml Inj IV Q8H PRN Nausea And Vomiting Sodium Chloride 10 ml 11/30/21 10:00 12/04/21 21:05 Sodium Chloride 0.9% 10 Ml Flush Syringe IV 10 ml BID ROBERT Administration Sodium Chloride 10 ml 11/30/21 01:25 Sodium Chloride 0.9% 10 Ml Flush Syringe IV PRN PRN LINE FLUSH Nutrition/Malnutrition Assess - Dietary Evaluation Nutrition/Malnutrition Findings: Nutrition Notes Start: 12/02/21 10:51 Freq: Status: Active Protocol: Document 12/02/21 10:51 JAGJIT (Rec: 12/02/21 10:57 JAGJIT [id number]) Nutrition Notes Need for Assessment generated from: wedding consultant Initial or Follow up Assessment Current Diagnosis CKD (stage V CKD) Other Pertinent Diagnosis Weakness, Missed HD, COVID-19 (+) Current Diet Renal Labs/Tests No current available; K 6.3 upon admission Pertinent Medications Reviewed Height 5 ft 6 in Weight 54.6 kg [place] Body Weight (kg) 59.09 BMI 19.4 Weight Status Underweight Subjective/Other Information Pt screened for skin risk ( Hermann score unavailable), chewing difficulty and hx of receiving NTR support. Pt admitted sec to missed HD. Burn Absent Trauma Absent Minimum of two criteria No #1 Nutrition Diagnosis Predicted suboptimal energy intake Etiology advanced age, weakness, COVID- 19 As Evidenced by Signs and Symptoms pt refused meals when first admitted, pt underweight for age Is patient on ventilator? No Is Patient Ambulatory and/or Out of Bed No REE-([place]-confined to bed) 1228.608 Kcal/Kg value to use for calculation 28 Approximate Energy Requirements Using 1529 kcal/Kg Calculation Used for Recommendations Kcal/kg Additional Notes Pro needs >1.2g/kg: >66g/day Fluid needs 1-1.5L/day Nutrition Intervention Change Diet Order: Continue current diet order Goal #1 PO intakes to meet at least 75 % energy and pro needs Goal #2 Wt maintenance and/or gain Anticipated Discharge Needs: Continue Renal diet Follow-Up By: 12/05/21 Additional Comments F/U: intakes, need for ONS
--- NOTE | 2021-12-05 09:28 | Cat Scan Report ---
CTA CHEST WITH IV CONTRAST INDICATION: COVID/hypoxia/elevated D-dimers/rule out PE. Dyspnea with chest pain TECHNIQUE: Axial CT images were obtained through the chest after injection of 75 mL Omnipaque 350 IV contrast. 3 plane MIP reconstructions were produced. All CT scans at this location are performed using CT dose r eduction for ALARA by means of automated exposure control. COMPARISON: None available. FINDINGS: PULMONARY ARTERIES: No pulmonary emboli. AORTA AND ARTERIES: No acute abnormality. MEDIASTINUM: Heart is mildly enlarged and there is prominent coronary artery calcification.. LUNGS: No significant airspace pneumonia. Small left pleural effusion. ADDITIONAL FINDINGS: None. UPPER ABDOMEN: No acute findings. Multicystic kidneys present diffuse anasarca noted BONES: No significant osseous abnormality. IMPRESSION: 1. No CT evidence for pulmonary embolism. 2. Cardiomegaly with small left pleural effusion and borderline interstitial edema. Signer Name: Jameson Estrada MD Signed: 12/05/2021 9:24 AM Workstation Name: [id number]
[2021-12-05] MEDS: HEPARIN 5,000 UNIT/1 ML VIAL SUB-Q SCH ×2 (10:32→21:46)
[2021-12-05] MEDS: FAMOTIDINE 20 MG TAB PO SCH (10:32)
[2021-12-05 11:04] LABS: Calcium 8.7 mg/dL (8.4-10.2)
[2021-12-05 11:06] LABS: C-Reactive Protein 0.8 mg/dL (0.00-1.30)
--- NOTE | 2021-12-05 11:34 | Progress Note ---
Assessment and Plan ESRD on HD: Hyperkalemia: Metabolic acidosis: Thrombocytopenia: -no indication for HD today -will assess dialysis daily -Low K diet -Recheck BMP -Eval for HD need daily -Strict I/Os Subjective Date of service: 12/05/21 Principal diagnosis: ESRD Interval history: denies acute issues, tolerated HD yesterday Objective - Vital Signs Vital signs: Vital Signs - 12hr 12/04/21 12/05/21 12/05/21 23:45 00:00 00:15 Temperature Pulse Rate 68 64 67 Respiratory Rate Blood Pressure 114/26 85/17 95/19 O2 Sat by Pulse Oximetry [ Throughout] 12/05/21 12/05/21 12/05/21 00:30 00:45 01:25 Temperature 97.8 F Pulse Rate 66 58 L 68 Respiratory 18 Rate Blood Pressure 95/16 98/18 112/70 O2 Sat by Pulse 99 Oximetry [ Throughout] - General Appearance General appearance: well-developed, well-nourished EENT: ATNC, PERRL, mucous membranes moist Neck: no JVD, no carotid bruit Respiratory: Present: Clear to Ascultation Cardiology: regular, S1S2 Gastrointestinal: normoactive bowel sounds Integumentary: no rash, warm and dry Neurologic: no focal deficit Musculoskeletal: other (no edema in BLE) Psychiatric: cooperative - Lab 12/02/21 22:55 12/05/21 10:24 Most recent lab results Calcium 8.7 mg/dL (8.4-10.2) 12/05/21 10:24 Medications & Allergies - Medications Allergies/Adverse Reactions: Allergies No Known Allergies Allergy (Verified 11/30/21 03:14) Active Medications: Generic Name Dose Route Start Last Admin Trade Name Freq PRN Reason Stop Dose Admin Acetaminophen 650 mg 11/30/21 01:25 12/02/21 16:49 Acetaminophen 325 Mg Tab PO 650 mg Q4H PRN Administration Pain MILD(1-3)/Fever >100.5/JOSUE Famotidine 20 mg 11/30/21 10:00 12/05/21 10:32 Famotidine 20 Mg Tab PO 20 mg DAILY ROBERT Administration Guaifenesin 10 ml 12/04/21 15:00 12/04/21 15:45 Guaifenesin Dm 200/20 Mg Oral Liqd 10 Ml PO 10 ml Q4H PRN Administration Cough Heparin Sodium (Porcine) 5,000 unit 11/30/21 10:00 12/05/21 10:32 Heparin 5,000 Unit/1 Ml Vial SUB-Q 5,000 unit Q12HR ROBERT Administration Sodium Chloride 100 mls @ 999 mls/hr 12/04/21 16:00 Nacl 0.9% IV RALPH PRN Hypotension Ondansetron HCl 4 mg 11/30/21 01:25 Ondansetron 4 Mg/2 Ml Inj IV Q8H PRN Nausea And Vomiting Sodium Chloride 10 ml 11/30/21 10:00 12/05/21 10:32 Sodium Chloride 0.9% 10 Ml Flush Syringe IV 10 ml BID ROBERT Administration Sodium Chloride 10 ml 11/30/21 01:25 Sodium Chloride 0.9% 10 Ml Flush Syringe IV PRN PRN LINE FLUSH
--- NOTE | 2021-12-05 13:30 | Consultation ---
History of Present Illness - Reason for Consult Consult date: 12/05/21 COVID-19 Requesting physician: LULU AMBROSE - History of Present Illness The patient is a 85-year-old female with ESRD on HD was admitted with generalized weakness. Due to this, she missed some dialysis sessions. Upon evaluation in the ER, noted to be hyperkalemic and with a creatinine of 15.1. She was started on dialysis. She also tested positive for COVID-19 hence infectious diseases was consulted. Patient is reportedly vaccinated. Currently, she remains on room air and has been afebrile. Labs show mild leukopenia 3.8, D-dimer 952, CRP 0.8, ferritin 2073 Review of Systems: reviewed in the chart, unable to obtain, minimize risk of transmission Past History Past Medical History: ESRD, renal failure Medications and Allergies Allergies Allergy/AdvReac Type Severity Reaction Status Date / Time No Known Allergies Allergy Verified 11/30/21 03:14 Active Meds: Active Medications Acetaminophen (Acetaminophen 325 Mg Tab) 650 mg PO Q4H PRN PRN Reason: Pain MILD(1-3)/Fever >100.5/JOSUE Last Admin: 12/02/21 16:49 Dose: 650 mg Famotidine (Famotidine 20 Mg Tab) 20 mg PO DAILY [facility] Last Admin: 12/05/21 10:32 Dose: 20 mg Guaifenesin (Guaifenesin Dm 200/20 Mg Oral Liqd 10 Ml) 10 ml PO Q4H PRN PRN Reason: Cough Last Admin: 12/04/21 15:45 Dose: 10 ml Heparin Sodium (Porcine) (Heparin 5,000 Unit/1 Ml Vial) 5,000 unit SUB-Q Q12HR [facility] Last Admin: 12/05/21 10:32 Dose: 5,000 unit Sodium Chloride (Nacl 0.9%) 100 mls @ 999 mls/hr IV RALPH PRN PRN Reason: Hypotension Ondansetron HCl (Ondansetron 4 Mg/2 Ml Inj) 4 mg IV Q8H PRN PRN Reason: Nausea And Vomiting Sodium Chloride (Sodium Chloride 0.9% 10 Ml Flush Syringe) 10 ml IV BID [facility] Last Admin: 12/05/21 10:32 Dose: 10 ml Sodium Chloride (Sodium Chloride 0.9% 10 Ml Flush Syringe) 10 ml IV PRN PRN PRN Reason: LINE FLUSH Physical Examination - Physical Exam Narrative exam: Physical Exam (reviewed in chart to minimize risk of transmission) Constitutional: deferred Head, Ears, Nose: deferred Eyes: deferred Neck: deferred Oral: deferred Cardiovascular: deferred Respiratory: deferred GI: deferred Musculoskeletal: deferred Skin: deferred Hem/Lymphatic: deferred Psych: deferred Neurological: deferred - Constitutional Vitals: Vital Signs Temp Pulse Resp BP Pulse Ox 97.8 F 68 18 112/70 99 12/05/21 01:25 12/05/21 01:25 12/05/21 01:25 12/05/21 01:25 12/05/21 01:25 Temperature -Last 24 Hours Temperature 97.8 F Temperature 97.6 F Temperature 97.6 F Temperature 98.9 F Results - Labs CBC & Chem 7: 12/02/21 22:55 12/05/21 10:24 Labs: Abnormal lab results 12/05/21 12/05/21 12/05/21 Range/Units 10:24 10:24 10:24 Creatinine 5.4 H (0.6-1.2) mg/dL Ferritin 2073.0 H (10.0-200.0) ng/mL Lactate Dehydrogenase 286 H (91-180) units/L - Imaging and Cardiology CT scan - chest: report reviewed, image reviewed (no pneumonia) Assessment and Plan Cultures: SARS CoV2 PCR: Positive A/P: 85-year-old female with ESRD on HD was admitted with generalized weakness. Due to this, she missed some dialysis sessions: #COVID-19 infection: On room air. Vaccinated. CTA without evidence for PE, borderline interstitial edema. #Leucopenia: likely from COVID-19 #ESRD on HD, volume overload due to missed dialysis sessions: On dialysis, nephrology following. Recs: -She remains on room air, no evidence of disease progression. Not a candidate for remdesivir due to renal failure. No indication for steroids. Will sign off. Please call with questions. Estela Samaniego MD, FACP, [facility] O: [phone] F: [phone]
--- NOTE | 2021-12-05 14:09 | Vascular Lab Report ---
DUPLEX DOPPLER LOWER EXTREMITY VEINS, BILATERAL INDICATION / CLINICAL INFORMATION: Elevated D-dimer rule out DVT. Lower extremity pain and swelling TECHNIQUE: Duplex doppler imaging was performed through the veins of both lower extremities using venous richa marcello and other maneuvers. COMPARISON: None available. FINDINGS: Right Common Femoral vein: Negative. Right Femoral vein: Negative. Right Popliteal vein: Negative. Right Calf veins: Negative. Left Common Femoral vein: Negative. Left Femoral vein: Negative. Left Popliteal vein: Negative. Left Calf veins: Negative. Additional findings: None. IMPRESSION: 1. No sonographic evidence for DVT in either lower extremity. Signer Name: Jameson Estrada MD Signed: 12/05/2021 2:04 PM Workstation Name: [id number]
--- NOTE | 2021-12-06 08:40 | Discharge Summary ---
Providers - Providers Date of Admission: 11/30/21 00:30 Date of discharge: 12/06/21 Attending physician: LULU AMBROSE 11/30/21 00:11 Consult to Physician [CONS] Stat Comment: Dr. Ventura spoke with Dr. Jaramillo @ [phone] Consulting Provider: MAHAMED JARAMILLO Physician Instructions: Reason For Exam: End-stage renal disease needing dialysis, acute hy 12/02/21 09:35 Physical Therapy Evaluation and Treat [CONS] Routine Comment: Reason For Exam: Generalized weakness with difficulty ambulating 12/02/21 09:46 Consult to Case Management [CONS] Routine Services Needed at Discharge: Other Notified:: cm notified Additional Physician Instructions: Generalized weakness, COVID-19 infection. May need subacute rehab versus home PT. 12/05/21 08:13 Consult to Physician [CONS] Routine Comment: Consulting Provider: [place] CALDWELL Physician Instructions: Reason For Exam: COVID-positive Primary care physician: FLOAT TENDER Hospitalization Condition: Stable Hospital course: 85 years old female with end-stage renal disease on hemodialysis was brought to the emergency room because of generalized weakness. She has been feeling ill with mild cough nausea, anorexia and some diarrhea since 7 to 10 days. Symptoms improving but still weak and not able to eat much. She was not able to go for dialysis since is feeling ill and weak. She is vaccinated including booster dose for COVID-19. Lives with her daughter and her son-in-law. patient did not have dialysis since last Sunday which is approximately 9 days now. Patient is alert, oriented and stated that she go to [facility] and her organizational psychologist named Dr. Limon's. Patient denied any chest pain or shortness of breath. No nausea or vomiting. In the emergency room patient found to have hyperkalemia with a potassium of 6.3. BUN of 69 and creatinine 15.1. patient received albuterol, dextrose, insulin and calcium chloride. Subsequently evaluated by organizational psychologist Dr. Mahamed Jaramillo, patient had emergency hemodialyzed . Patient was tested positive for COVID-19, placed on isolation precautions, evaluated by ID, patient did not have any hypoxia, saturating well room air Patient did not require remdesivir, oxygen or steroids, Patient received hemodialysis per schedule, Symptoms significantly improved .today patient is c omfortable No new complaints, vital signs stable, physical examination prior to discharge did not show any new changes Cleared by ID and nephrology for discharge and follow-up per schedule Stable at discharge Discharge diagnosis: - End-stage renal disease needing dialysis Current Visit: No Status: Acute Patient was unable to go for hemodialysis since sick with GI symptoms and some cough. Noted to be hyperkalemic Patient already get calcium chloride 1 g IV x1 dose, insulin 5 units regular insulin, Kayexalate 60 g p.o. once. And D50. Case discussed with on-call nephrology Dr. Hunter Jaramillo, underwent emergent hemodialysis and potassium normalized. Patient is currently euvolemic. Receiving dialysis as per schedule. --Acute hyperkalemia Current Visit: No Status: Acute Patient already get calcium chloride 1 g IV x1 dose, insulin 5 units regular insulin, Kayexalate 60 g p.o. once. And D50. Case discussed with on-call nephrology Dr. Hunter Jaramillo, patient underwent hemodialysis emergently, potassium normalized since. Likely etiology of hyperkalemia is noncompliance with dialysis. -- COVID-19 acute infection: 12/01/2021 Acute illness with nausea, anorexia, mild diarrhea and cough generalized weakness since poorly eating x10 days. She has been feeling ill with mild cough nausea, anorexia and some diarrhea since 7 to 10 days. Symptoms improving but still weak and not able to eat much. She was not able to go for dialysis since is feeling ill and weak. She is vaccinated including booster dose against COVID-19. PCR test for COVID-19 positive 12/01. Resumed renal diet as tolerated. No nausea or diarrhea. Appetite is improved. Started eating. Ordered PT. Supportive measures. No indication for steroids or remdesivir. --Hypoalbuminemia; albumin 3.0. Nutrition supplements and supportive care --Moderate malnutrition; Nutrition supplements and supportive care --hypotension Likely due to poor p.o. intake. She is not on any hypertensives. Improved after renal normal saline bolus, 500 mL x 1 on 12/01. Patient is hemodynamically and clinically stable at discharge Patient advised to comply with medications follow-up visits and hemodialysis Patient verbalized understanding Disposition: 01 HOME / SELF CARE / HOMELESS Final Discharge Diagnosis (Prints w/discharge instructions): End-stage renal disease on hemodialysis. Noncompliance with dialysis. COVID-19 infection asymptomatic. Hypoalbuminemia. Moderate malnutrition. Hypotension resolved. Acute hyperkalemia corrected Time spent for discharge: 45 min Core Measure Documentation - Palliative Care Palliative Care/ Comfort Measures: Not Applicable - Core Measures Any of the following diagnoses?: none Exam - Constitutional Vitals: Temp Pulse Resp BP Pulse Ox 98.0 F 62 18 105/24 96 12/06/21 06:04 12/06/21 06:04 12/06/21 06:04 12/06/21 06:04 12/06/21 06:04 Plan Activity: advance as tolerated Diet: renal Additional Instructions: Advised to follow renal/hemodialysis per schedule. Advised to comply with medications diet and follow-up visits. If you have worsening symptoms contact MD or go to the nearest emergency room as needed Follow up with: PRIMARY CAREMD [Primary Care Provider] - 7 Days MAHAMED JARAMILLO MD [Staff Physician] - 7 Days Prescriptions: guaiFENesin DM [Guaifenesin Dm Syrup] 10 ml PO Q4H PRN #10 oral.liqd PRN Reason: Cough Famotidine [Pepcid] 20 mg PO DAILY #30 tablet Ascorbic Acid [Vitamin C chew] 500 mg PO BID #30 Cholecalciferol Vit D3 [Vitamin D3 1,000 UNIT TAB] 1,000 unit PO QDAY #15 tablet Zinc Sulfate 1 cap PO DAILY #15 capsule
--- NOTE | 2021-12-06 09:02 | Progress Note ---
Assessment and Plan ESRD on HD: Hyperkalemia: Metabolic acidosis: Thrombocytopenia: -HD today for clearance and volume removal -can be discharged from renal standpoint post HD -will assess dialysis daily -Low K diet -Recheck BMP -Eval for HD need daily -Strict I/Os Subjective Date of service: 12/06/21 Principal diagnosis: ESRD Interval history: no overnight events Objective - Vital Signs Vital signs: Vital Signs - 12hr 12/05/21 12/06/21 12/06/21 21:22 00:49 02:00 Temperature 98.3 F Pulse Rate 57 L 57 L Respiratory 18 18 Rate Blood Pressure 122/42 O2 Sat by Pulse 97 95 Oximetry 12/06/21 06:04 Temperature 98.0 F Pulse Rate 62 Respiratory 18 Rate Blood Pressure 105/24 O2 Sat by Pulse 96 Oximetry - Lab 12/02/21 22:55 12/06/21 07:35 Most recent lab results Calcium 9.0 mg/dL (8.4-10.2) 12/06/21 07:35 Medications & Allergies - Medications Allergies/Adverse Reactions: Allergies No Known Allergies Allergy (Verified 11/30/21 03:14) Active Medications: Generic Name Dose Route Start Last Admin Trade Name Freq PRN Reason Stop Dose Admin Acetaminophen 650 mg 11/30/21 01:25 12/02/21 16:49 Acetaminophen 325 Mg Tab PO 650 mg Q4H PRN Administration Pain MILD(1-3)/Fever >100.5/JOSUE Famotidine 20 mg 11/30/21 10:00 12/05/21 10:32 Famotidine 20 Mg Tab PO 20 mg DAILY ROBERT Administration Guaifenesin 10 ml 12/04/21 15:00 12/04/21 15:45 Guaifenesin Dm 200/20 Mg Oral Liqd 10 Ml PO 10 ml Q4H PRN Administration Cough Heparin Sodium (Porcine) 5,000 unit 11/30/21 10:00 12/05/21 21:46 Heparin 5,000 Unit/1 Ml Vial SUB-Q 5,000 unit Q12HR ROBERT Administration Sodium Chloride 100 mls @ 999 mls/hr 12/04/21 16:00 Nacl 0.9% IV RALPH PRN Hypotension Ondansetron HCl 4 mg 11/30/21 01:25 Ondansetron 4 Mg/2 Ml Inj IV Q8H PRN Nausea And Vomiting Sodium Chloride 10 ml 11/30/21 10:00 12/05/21 21:46 Sodium Chloride 0.9% 10 Ml Flush Syringe IV 10 ml BID ROBERT Administration Sodium Chloride 10 ml 11/30/21 01:25 Sodium Chloride 0.9% 10 Ml Flush Syringe IV PRN PRN LINE FLUSH
[2021-12-06] MEDS: FAMOTIDINE 20 MG TAB PO SCH (09:18)
[2021-12-06] MEDS: HEPARIN 5,000 UNIT/1 ML VIAL SUB-Q SCH (09:19)
[2021-12-06 17:27] VITALS: BP 120/54
== END 2021-12-06 21:13 | disposition home health service (06) | DRG 640 ==
LOC: EDSEX → ED 21:20 → 4A 11-30 00:30 → 3A 12-01 23:50
PROVIDERS: ADMIT Hospitalist; ATTEND Internal Medicine
PROC: 5A1D70Z Performance of Urinary Filtration, Intermittent, Less than 6 Hours Per Day (ICD-10-PCS; 2021-11-30)
PROC: 5A1D70Z Performance of Urinary Filtration, Intermittent, Less than 6 Hours Per Day (ICD-10-PCS; 2021-12-01)
PROC: 5A1D70Z Performance of Urinary Filtration, Intermittent, Less than 6 Hours Per Day (ICD-10-PCS; 2021-12-04)
PROC: 5A1D70Z Performance of Urinary Filtration, Intermittent, Less than 6 Hours Per Day (ICD-10-PCS; principal; 2021-12-06)
DX: E87.5 Hyperkalemia (principal); U07.1 COVID-19; N18.6 End stage renal disease; E44.0 Moderate protein-calorie malnutrition; Z68.1 Body mass index [BMI] 19.9 or less, adult; J45.901 Unspecified asthma with (acute) exacerbation; E87.2 Acidosis; D69.6 Thrombocytopenia, unspecified; I95.9 Hypotension, unspecified; E66.01 Morbid (severe) obesity due to excess calories; Z91.15 Patient's noncompliance with renal dialysis
CPT/HCPCS: 36415; 71045; 71275; 80048; 80053; 80074; 82728; 82962; 83615; 83721; 85025; 85379; 86140; 93970; G0378; J1644; J2270; J7040; P9047; Q9967; U0003